=== PATIENT | female | born 1940 | race Caucasian/White ===

== ENCOUNTER → 2016-08-03 | Outpatient (CLI) | payer OTHER ==
[~2016-08-03] MED LIST: ACID16CA PO; BIOT25004 PO; CHOL100018 PO; CRAN500C6 PO; ESTR1TAB15 PO; FLUO20TA25 PO; FURO40TA6 PO; GARL1CAP3 PO; GLUC500T8 PO; HYDR2TAB40 PO; Iron PO; LACT10SO28 PO; LISI2.5T PO; LOPE1TAB4 PO; MORP15TA3 PO; OMEG1CAP6 PO; OMEP-110 PO; OXYC1TAB9 PO; PIOG30TA4 PO; POTA10TA31 PO; ROPI0.5T2 PO; SIMV80TA3 PO; TIZA4TAB9 PO; TRAZ300T2 PO; TRIA0.2517 PO
== END | disposition home or self-care (01) ==
LOC: CFH 05-03 09:47 → EDSTATUS 11:00 → CFH 08-04 14:47
PROVIDERS: ATTEND Internal Medicine Cardiovascular Disease
DX: I08.3 Combined rheumatic disorders of mitral, aortic and tricuspid valves (principal); Z95.2 Presence of prosthetic heart valve
CPT/HCPCS: 93306

== ENCOUNTER 2016-10-20 20:20 | Emergency (ER) | payer OTHER ==
[~2016-10-20] VITALS: Ht 170.2 cm; Wt 75.0 kg
[~2016-10-20 20:20] MED LIST changes: -BIOT25004 PO; +BIOT25005 PO; +CHOL100012 PO; -CHOL100018 PO; +GLUC500T11 PO; -GLUC500T8 PO; -TRIA0.2517 PO; +TRIA0.2576 PO
[2016-10-20 20:30] VITALS: BP 135/67
[2016-10-20] MEDS ORDERED: LIDOCAINE 1%, 20ML INFIL ONE (21:00)
[2016-10-20] MEDS ORDERED: OXYMETAZOLINE NASAL SPRAY 0.05%, 15ML NAS ONE (21:00)
[2016-10-20] MEDS ORDERED: OXYMETAZOLINE NASAL SPRAY 0.05%, 15ML ONE (21:01)
[2016-10-20] MEDS ORDERED: LIDOCAINE 1%, 20ML ONE (21:01)
[2016-10-20] MEDS ORDERED: SILVER NITRATE STICK TP ONE ×3 (21:30→21:40)
== END 2016-10-20 22:05 | disposition home or self-care (01) ==
LOC: ED 21:12
DX: R04.0 Epistaxis (principal)
CPT/HCPCS: 30901

== ENCOUNTER 2017-08-24 15:16 | Inpatient (IN) | payer OTHER ==
[~2017-08-24] VITALS: Ht 177.8 cm; Wt 79.4 kg
[~2017-08-24 15:16] MED LIST changes: +OXYC-432 PO; -OXYC1TAB9 PO
[2017-08-24 15:58] LABS: BASOPHILS # (AUTO) 0.02 x10^3/uL (0-0.1); BASOPHILS % (AUTO) 0 % (0-1); EOSINOPHILS # (AUTO) 0.12 x10^3/uL (0-0.4); EOSINOPHILS % (AUTO) 1 % (1-7); LYMPHOCYTES # (AUTO) 0.69 x10^3/uL (1-3.4); LYMPHOCYTES % (AUTO) 8 % (22-44); MD NO; MEAN CORPUSCULAR HEMOGLOBIN 31.9 pg (27.0-34.8); MEAN CORPUSCULAR HGB CONC 33.6 g/dL (32.4-35.8); MEAN CORPUSCULAR VOLUME 94.9 fL (80-100); MEAN PLATELET VOLUME 7.3 fL (7.4-10.4); MONOCYTES # (AUTO) 0.65 x10^3/uL (0.2-0.8); MONOCYTES % (AUTO) 7 % (2-9); NEUTROPHILS % (AUTO) 83 % (42-75); PLATELET COUNT 237 x10^3/uL (130-400); RED BLOOD COUNT 3.49 x10^6/uL (3.82-5.3); RED CELL DISTRIBUTION WIDTH 14.6 % (9.6-15.2)
[2017-08-24] MEDS ORDERED: MORPHINE SULFATE 4 MG/ML, 1ML IVPush PRN (16:00)
[2017-08-24 16:08] LABS: CHLORIDE 108 mmol/L (98-107)
[2017-08-24 16:17] LABS: ALBUMIN 3.6 g/dL (3.4-5.0); ANION GAP 8 mmol/L (5-15); CALCIUM 9.2 mg/dL (8.5-10.1); CREATININE 1.35 mg/dL (0.55-1.02)
[2017-08-24] MEDS ORDERED: DIPHENHYDRAMINE 50 MG/ML, 1ML IVPush ONE (17:00)
[2017-08-24] MEDS ORDERED: methylPREDNISolone SOD SUCC 125 MG/2 ML IVPush ONE (17:00)
[2017-08-24] MEDS ORDERED: DIPHENHYDRAMINE 50 MG/ML, 1ML ONE (17:49)
[2017-08-24] MEDS ORDERED: methylPREDNISolone SOD SUCC 125 MG/2 ML ONE (17:49)
[2017-08-24] MEDS ORDERED: OMNIPAQUE 350 MG/ML, 100ML BOTTLE ONE (18:42)
[2017-08-24 19:16] LABS: INTERNATIONAL NORMALIZED RATIO 1.01 (0.93-1.1); PROTHROMBIN TIME 10.4 Seconds (9.6-11.5)
[2017-08-24] MEDS ORDERED: PLEASE ENTER WEIGHT MC SCH (19:16)
[2017-08-24] MEDS ORDERED: METOPROLOL TARTRATE 25 MG TABLET PO ONE (19:30)
[2017-08-24] MEDS ORDERED: MORPHINE SULFATE 4 MG/ML, 1ML ONE (19:41)
[2017-08-24] MEDS ORDERED: TRAZODONE 150MG TABLET PO SCH (21:00)
[2017-08-24] MEDS ORDERED: POLYETHYLENE GLYCOL 17 GM PACKET PO PRN (21:00)
[2017-08-24] MEDS ORDERED: ONDANSETRON 2MG/ML, 2ML IVPush PRN (21:00)
[2017-08-24] MEDS ORDERED: ACETAMINOPHEN 325 MG TABLET PO PRN (21:00)
[2017-08-24] MEDS ORDERED: BISACODYL 10 MG SUPP PR PRN (21:00)
[2017-08-24] MEDS ORDERED: ROPINIROLE 0.5MG TABLET PO PRN (21:00)
[2017-08-24] MEDS ORDERED: TEMPLATE NON-FORMULARY MED. (Glucosamine Hcl** 1,000 MG) PO SCH (21:00)
[2017-08-24] MEDS ORDERED: TIZANIDINE 4MG TABLET PO PRN (21:00)
[2017-08-24] MEDS ORDERED: NITROGLYCERIN 0.4 MG BOTTLE (25 TABS) SL PRN (21:00)
[2017-08-24 21:09] VITALS: BP 149/84
[2017-08-24 21:18] LABS: THYROID STIMULATING HORMONE 1.99 mIU/L (0.358-3.740)
[2017-08-24 21:43] LABS: HEMOGLOBIN A1C 5.3 % (4.2-6.3)
[2017-08-24 22:35] LABS: TROPONIN I < 0.015 ng/mL (0.000-0.045)
[2017-08-24] MEDS: OMEGA-3/FISH OIL CAPSULE PO SCH ×2 (22:49→23:10)
[2017-08-24] MEDS: SODIUM CHLORIDE FLUSH 10ML SYR IVF SCH (22:49)
[2017-08-24] MEDS: LISINOPRIL 5 MG TABLET PO SCH (22:50)
[2017-08-24] MEDS: LOPERAMIDE 2 MG CAPSULE PO SCH (22:51)
[2017-08-24] MEDS: SIMVASTATIN 40 MG TABLET PO SCH (22:51)
[2017-08-24] MEDS: TEMAZEPAM 15 MG CAPSULE PO PRN (22:52)
[2017-08-24] MEDS: PIOGLITAZONE 15 MG TABLET PO SCH (22:59)
[2017-08-24] MEDS: ESTRADIOL 1 MG TABLET PO SCH (22:59)
[2017-08-24] MEDS ORDERED: AMIT25TA PO (23:03)
[2017-08-24] MEDS: AMITRIPTYLINE 25 MG TABLET PO SCH (23:15)
[2017-08-24] MEDS: ENOXAPARIN 80 MG/0.8 ML SQ SCH (23:15)
[2017-08-25 02:00] VITALS: BP 128/80
[2017-08-25 05:07] LABS: ALBUMIN 3.5 g/dL (3.4-5.0); ANION GAP 9 mmol/L (5-15); CALCIUM 9.2 mg/dL (8.5-10.1); CHLORIDE 105 mmol/L (98-107)
[2017-08-25 05:09] LABS: MEAN CORPUSCULAR HEMOGLOBIN 31.9 pg (27.0-34.8); MEAN CORPUSCULAR HGB CONC 33.7 g/dL (32.4-35.8); MEAN CORPUSCULAR VOLUME 94.7 fL (80-100); MEAN PLATELET VOLUME 7.4 fL (7.4-10.4); PLATELET COUNT 256 x10^3/uL (130-400); RED BLOOD COUNT 3.67 x10^6/uL (3.82-5.3); RED CELL DISTRIBUTION WIDTH 14.7 % (9.6-15.2)
[2017-08-25 05:12] LABS: ALANINE AMINOTRANSFERASE 35 U/L (12-78); ALKALINE PHOSPHATASE 144 U/L (45-117); BILIRUBIN,TOTAL 0.5 mg/dL (0.2-1.0); CREATININE 1.45 mg/dL (0.55-1.02); TOTAL PROTEIN 7.9 g/dL (6.4-8.2); TROPONIN I < 0.015 ng/mL (0.000-0.045)
[2017-08-25] MEDS: METOPROLOL TARTRATE 50 MG TABLET PO SCH ×2 (05:48→16:43)
[2017-08-25 05:51] LABS: BASOPHILS % (AUTO) 0 % (0-1); EOSINOPHILS % (AUTO) 0 % (1-7); LYMPHOCYTES # (AUTO) 0.43 x10^3/uL (1-3.4); LYMPHOCYTES % (AUTO) 5 % (22-44); MD SCAN; MONOCYTES # (AUTO) 0.07 x10^3/uL (0.2-0.8); MONOCYTES % (AUTO) 1 % (2-9); NEUTROPHILS # (AUTO) 8.81 x10^3/uL (1.8-6.8); NEUTROPHILS % (AUTO) 95 % (42-75)
[2017-08-25] MEDS: LOPERAMIDE 2 MG CAPSULE PO SCH ×2 (08:04→21:21)
[2017-08-25] MEDS: CHOLECALCIFEROL 1,000 UNIT TABLET PO SCH (08:04)
[2017-08-25] MEDS: OMEGA-3/FISH OIL CAPSULE PO SCH ×2 (08:04→21:00)
[2017-08-25] MEDS: FLUOXETINE HCL 20 MG CAPSULE PO SCH (08:05)
[2017-08-25] MEDS: AMITRIPTYLINE 25 MG TABLET PO SCH ×3 (08:05→21:20)
[2017-08-25] MEDS: IRON PO SCH (08:06)
[2017-08-25] MEDS: SENNA/DOCUSATE TABLET PO SCH (08:06)
[2017-08-25] MEDS: SODIUM CHLORIDE FLUSH 10ML SYR IVF SCH ×2 (08:06→21:19)
[2017-08-25] MEDS: LACTOBACILLUS CHEW TABLET PO SCH (08:06)
[2017-08-25] MEDS: PIOGLITAZONE 15 MG TABLET PO SCH ×2 (08:06→21:19)
[2017-08-25 08:55] VITALS: BP 120/76
[2017-08-25] MEDS ORDERED: GARLIC PO SCH (09:00)
[2017-08-25] MEDS ORDERED: TEMPLATE NON-FORMULARY MED. (Biotin** 5,000 MG) PO SCH (09:00)
[2017-08-25] MEDS: ENOXAPARIN 80 MG/0.8 ML SQ SCH ×2 (09:43→21:22)
[2017-08-25 13:37] LABS: INTERNATIONAL NORMALIZED RATIO 1.09 (0.93-1.1); PROTHROMBIN TIME 11.2 Seconds (9.6-11.5)
[2017-08-25 14:34] VITALS: BP 105/69
[2017-08-25] MEDS ORDERED: WARFARIN 5 MG TABLET PO-COUM ONE (18:00)
[2017-08-25 19:02] VITALS: BP 101/66
[2017-08-25 21:17] VITALS: BP 106/69
[2017-08-25] MEDS: ESTRADIOL 1 MG TABLET PO SCH (21:20)
[2017-08-25] MEDS: LISINOPRIL 5 MG TABLET PO SCH (21:21)
[2017-08-25] MEDS: SIMVASTATIN 40 MG TABLET PO SCH (21:22)
[2017-08-25] MEDS: TEMAZEPAM 15 MG CAPSULE PO PRN (21:32)
[2017-08-26 02:25] VITALS: BP 110/70
[2017-08-26 05:10] VITALS: BP 97/60
[2017-08-26] MEDS: METOPROLOL TARTRATE 50 MG TABLET PO SCH ×2 (05:12→16:06)
[2017-08-26 05:19] LABS: INTERNATIONAL NORMALIZED RATIO 1.02 (0.93-1.1); PROTHROMBIN TIME 10.5 Seconds (9.6-11.5)
[2017-08-26 05:22] LABS: BASOPHILS # (AUTO) 0.04 x10^3/uL (0-0.1); BASOPHILS % (AUTO) 0 % (0-1); EOSINOPHILS # (AUTO) 0.05 x10^3/uL (0-0.4); EOSINOPHILS % (AUTO) 0 % (1-7); LYMPHOCYTES # (AUTO) 1.35 x10^3/uL (1-3.4); LYMPHOCYTES % (AUTO) 10 % (22-44); MD NO; MEAN CORPUSCULAR HEMOGLOBIN 32.2 pg (27.0-34.8); MEAN CORPUSCULAR HGB CONC 33.6 g/dL (32.4-35.8); MEAN CORPUSCULAR VOLUME 95.6 fL (80-100); MEAN PLATELET VOLUME 7.8 fL (7.4-10.4); MONOCYTES # (AUTO) 0.84 x10^3/uL (0.2-0.8); MONOCYTES % (AUTO) 6 % (2-9); NEUTROPHILS # (AUTO) 11.88 x10^3/uL (1.8-6.8); NEUTROPHILS % (AUTO) 84 % (42-75); PLATELET COUNT 249 x10^3/uL (130-400); RED BLOOD COUNT 3.38 x10^6/uL (3.82-5.3); RED CELL DISTRIBUTION WIDTH 14.5 % (9.6-15.2)
[2017-08-26 05:39] LABS: ANION GAP 7 mmol/L (5-15); CALCIUM 9.2 mg/dL (8.5-10.1); CHLORIDE 103 mmol/L (98-107); CREATININE 1.62 mg/dL (0.55-1.02)
[2017-08-26] MEDS ORDERED: SODIUM CHLORIDE 0.9%, 500ML IVBOLUS ONE (07:00)
[2017-08-26] MEDS: IRON PO SCH (07:12)
[2017-08-26] MEDS: SENNA/DOCUSATE TABLET PO SCH (07:12)
[2017-08-26] MEDS: OMEGA-3/FISH OIL CAPSULE PO SCH ×3 (07:12→20:14)
[2017-08-26 07:20] VITALS: BP 108/71
[2017-08-26] MEDS: LACTOBACILLUS CHEW TABLET PO SCH (07:25)
[2017-08-26] MEDS: CHOLECALCIFEROL 1,000 UNIT TABLET PO SCH (07:25)
[2017-08-26] MEDS: FLUOXETINE HCL 20 MG CAPSULE PO SCH (07:25)
[2017-08-26] MEDS: PIOGLITAZONE 15 MG TABLET PO SCH ×2 (07:25→20:05)
[2017-08-26] MEDS: LOPERAMIDE 2 MG CAPSULE PO SCH ×2 (07:25→20:06)
[2017-08-26] MEDS: AMITRIPTYLINE 25 MG TABLET PO SCH ×3 (07:25→20:06)
[2017-08-26] MEDS: SODIUM CHLORIDE FLUSH 10ML SYR IVF SCH ×2 (07:26→20:07)
[2017-08-26] MEDS: ENOXAPARIN 80 MG/0.8 ML SQ SCH ×2 (09:52→20:05)
[2017-08-26 14:30] VITALS: BP 107/61
[2017-08-26 14:41] LABS: ANION GAP 8 mmol/L (5-15); CHLORIDE 104 mmol/L (98-107); CREATININE 1.63 mg/dL (0.55-1.02)
[2017-08-26] MEDS: SODIUM CHLORIDE 0.9% 1,000 ML IV SCH (16:06)
[2017-08-26 17:27] LABS: MICROSCOPIC AUTO
[2017-08-26 17:31] LABS: CULTURE INDICATED? YES
[2017-08-26] MEDS ORDERED: WARFARIN 5 MG TABLET PO-COUM SCH (18:00)
[2017-08-26 19:02] VITALS: BP 92/60
[2017-08-26] MEDS: ESTRADIOL 1 MG TABLET PO SCH (20:06)
[2017-08-26] MEDS: LISINOPRIL 5 MG TABLET PO SCH (20:08)
[2017-08-26] MEDS: SIMVASTATIN 40 MG TABLET PO SCH (20:08)
[2017-08-26] MEDS: TEMAZEPAM 15 MG CAPSULE PO PRN (22:28)
[2017-08-27 01:03] VITALS: BP 103/69
[2017-08-27] MEDS: SODIUM CHLORIDE 0.9% 1,000 ML IV SCH (02:02)
[2017-08-27 05:27] VITALS: BP_SYST 94; BP_SYST 95; BP_DIAS 59; BP_DIAS 64
[2017-08-27 05:34] LABS: INTERNATIONAL NORMALIZED RATIO 1.04 (0.93-1.1); PROTHROMBIN TIME 10.7 Seconds (9.6-11.5)
[2017-08-27] MEDS: METOPROLOL TARTRATE 50 MG TABLET PO SCH (05:34)
[2017-08-27 05:40] LABS: ANION GAP 8 mmol/L (5-15); CALCIUM 8.4 mg/dL (8.5-10.1); CHLORIDE 108 mmol/L (98-107); CREATININE 1.55 mg/dL (0.55-1.02)
[2017-08-27 06:34] VITALS: BP 98/52
[2017-08-27] MEDS: IRON PO SCH (07:19)
[2017-08-27] MEDS: SENNA/DOCUSATE TABLET PO SCH (07:19)
[2017-08-27] MEDS: OMEGA-3/FISH OIL CAPSULE PO SCH (07:19)
[2017-08-27] MEDS: FLUOXETINE HCL 20 MG CAPSULE PO SCH (07:27)
[2017-08-27] MEDS: LOPERAMIDE 2 MG CAPSULE PO SCH (07:27)
[2017-08-27] MEDS: AMITRIPTYLINE 25 MG TABLET PO SCH (07:27)
[2017-08-27] MEDS: PIOGLITAZONE 15 MG TABLET PO SCH (07:27)
[2017-08-27] MEDS: LACTOBACILLUS CHEW TABLET PO SCH (07:27)
[2017-08-27] MEDS: CHOLECALCIFEROL 1,000 UNIT TABLET PO SCH (07:27)
[2017-08-27] MEDS: SODIUM CHLORIDE FLUSH 10ML SYR IVF SCH (07:28)
[2017-08-27 07:43] LABS: BASOPHILS # (AUTO) 0.04 x10^3/uL (0-0.1); BASOPHILS % (AUTO) 0 % (0-1); EOSINOPHILS # (AUTO) 0.11 x10^3/uL (0-0.4); EOSINOPHILS % (AUTO) 1 % (1-7); LYMPHOCYTES # (AUTO) 0.81 x10^3/uL (1-3.4); LYMPHOCYTES % (AUTO) 9 % (22-44); MD NO; MEAN CORPUSCULAR HEMOGLOBIN 31.3 pg (27.0-34.8); MEAN CORPUSCULAR HGB CONC 33.1 g/dL (32.4-35.8); MEAN CORPUSCULAR VOLUME 94.5 fL (80-100); MEAN PLATELET VOLUME 8.1 fL (7.4-10.4); MONOCYTES # (AUTO) 0.56 x10^3/uL (0.2-0.8); MONOCYTES % (AUTO) 6 % (2-9); NEUTROPHILS # (AUTO) 7.78 x10^3/uL (1.8-6.8); NEUTROPHILS % (AUTO) 84 % (42-75); PLATELET COUNT 239 x10^3/uL (130-400); RED BLOOD COUNT 3.38 x10^6/uL (3.82-5.3); RED CELL DISTRIBUTION WIDTH 14.5 % (9.6-15.2)
[2017-08-27 07:53] LABS: HEMOGRAM NOTE RECHECKED
[2017-08-27] MEDS ORDERED: METO50TA82 PO (08:49)
[2017-08-27] MEDS ORDERED: WARF7.5T PO-COUM (08:49)
[2017-08-27] MEDS: ENOXAPARIN 80 MG/0.8 ML SQ SCH (10:00)
[2017-08-27] MEDS ORDERED: WARFARIN 7.5 MG TABLET PO-COUM SCH (18:00)
== END 2017-08-27 12:00 | disposition home or self-care (01) | DRG 308 ==
LOC: ED 17:10 → EDIP 19:15 → 5SO 21:03
PROVIDERS: ADMIT Internal Medicine; ATTEND Internal Medicine
DX: I48.0 Paroxysmal atrial fibrillation (principal); N17.0 Acute kidney failure with tubular necrosis; D68.69 Other thrombophilia; I48.92 Unspecified atrial flutter; D64.9 Anemia, unspecified; I08.1 Rheumatic disorders of both mitral and tricuspid valves; E11.22 Type 2 diabetes mellitus with diabetic chronic kidney disease; E78.5 Hyperlipidemia, unspecified; N18.9 Chronic kidney disease, unspecified; I13.10 Hypertensive heart and chronic kidney disease without heart failure, with stage 1 through stage 4 chronic kidney disease, or unspecified chronic kidney disease; I25.10 Atherosclerotic heart disease of native coronary artery without angina pectoris; I25.2 Old myocardial infarction; Z79.01 Long term (current) use of anticoagulants; Z81.8 Family history of other mental and behavioral disorders; Z90.710 Acquired absence of both cervix and uterus; Z95.3 Presence of xenogenic heart valve; Z79.899 Other long term (current) drug therapy; Z88.1 Allergy status to other antibiotic agents; Z88.8 Allergy status to other drugs, medicaments and biological substances
CPT/HCPCS: 36415; 71045; 71275; 80048; 80053; 81001; 82040; 82962; 83036; 83735; 84443; 84484; 85025; 85379; 85610; 87077; 87086; 87186; 93005; 93306; 96374; 96375; J1650; Q9967; J1200; J2930; J7030; J7040

== ENCOUNTER 2017-09-05 11:24 | Inpatient (IN) | payer OTHER ==
[~2017-09-05] VITALS: Ht 170.2 cm; Wt 82.2 kg
[~2017-09-05 11:24] MED LIST changes: +AMIT25TA PO; +METO50TA82 PO; +WARF7.5T PO-COUM
[2017-09-05] MEDS ORDERED: SODIUM CHLORIDE 0.9% 1,000ML IVBOLUS ONE (12:00)
[2017-09-05] MEDS ORDERED: SODIUM CHLORIDE FLUSH 10ML SYR IVF ONE (12:00)
[2017-09-05 12:31] LABS: BASOPHILS # (AUTO) 0.02 x10^3/uL (0-0.1); BASOPHILS % (AUTO) 0 % (0-1); EOSINOPHILS # (AUTO) 0.06 x10^3/uL (0-0.4); EOSINOPHILS % (AUTO) 1 % (1-7); LYMPHOCYTES % (AUTO) 6 % (22-44); MD NO; MEAN CORPUSCULAR HEMOGLOBIN 30.8 pg (27.0-34.8); MEAN CORPUSCULAR HGB CONC 32.8 g/dL (32.4-35.8); MEAN CORPUSCULAR VOLUME 93.7 fL (80-100); MEAN PLATELET VOLUME 8.2 fL (7.4-10.4); MONOCYTES # (AUTO) 0.63 x10^3/uL (0.2-0.8); MONOCYTES % (AUTO) 7 % (2-9); NEUTROPHILS # (AUTO) 8.41 x10^3/uL (1.8-6.8); NEUTROPHILS % (AUTO) 87 % (42-75); PLATELET COUNT 229 x10^3/uL (130-400); RED BLOOD COUNT 3.24 x10^6/uL (3.82-5.3); RED CELL DISTRIBUTION WIDTH 15.3 % (9.6-15.2)
[2017-09-05 12:41] LABS: ALANINE AMINOTRANSFERASE 50 U/L (12-78); ALBUMIN 3.4 g/dL (3.4-5.0); ANION GAP 8 mmol/L (5-15); CALCIUM 8.4 mg/dL (8.5-10.1); CHLORIDE 109 mmol/L (98-107); CREATININE 1.72 mg/dL (0.55-1.02)
[2017-09-05 12:45] LABS: ALKALINE PHOSPHATASE 174 U/L (45-117); BILIRUBIN,TOTAL 0.4 mg/dL (0.2-1.0); TOTAL PROTEIN 7.1 g/dL (6.4-8.2); TROPONIN I < 0.015 ng/mL (0.000-0.045)
[2017-09-05 13:06] LABS: INTERNATIONAL NORMALIZED RATIO 13.26 (0.93-1.1); PROTHROMBIN TIME 131.1 Seconds (9.6-11.5)
[2017-09-05] MEDS ORDERED: PHYTONADIONE 5 MG TABLET PO ONE (13:30)
[2017-09-05 13:55] VITALS: BP 113/75
[2017-09-05] MEDS ORDERED: ATOR-2 PO (14:11)
[2017-09-05] MEDS ORDERED: POLYETHYLENE GLYCOL 17 GM PACKET PO PRN (16:00)
[2017-09-05] MEDS ORDERED: NITROGLYCERIN 0.4 MG BOTTLE (25 TABS) SL PRN (16:00)
[2017-09-05] MEDS: AMITRIPTYLINE 25 MG TABLET PO SCH ×2 (16:05→20:03)
[2017-09-05] MEDS: FERROUS SULFATE 325 MG TABLET PO SCH (16:05)
[2017-09-05 17:47] VITALS: BP 128/80
[2017-09-05] MEDS: ACETAMINOPHEN 325 MG TABLET PO PRN (18:32)
[2017-09-05] MEDS ORDERED: PHYTONADIONE 5 MG in SODIUM CHLORIDE 0.9% 50 ML IV ONE (18:46)
[2017-09-05] MEDS: ATORVASTATIN 80 MG TABLET PO SCH (20:03)
[2017-09-05] MEDS: ESTRADIOL 1 MG TABLET PO SCH (20:03)
[2017-09-05 20:24] VITALS: BP 108/67
[2017-09-05] MEDS: ZOLPIDEM 5MG TABLET PO SCH (21:28)
[2017-09-05 21:37] VITALS: BP 102/58
[2017-09-05 21:44] VITALS: BP 102/63
[2017-09-05 22:20] LABS: CULTURE INDICATED? YES; MICROSCOPIC INDICATED
[2017-09-06] VITALS (8 sets, daily range): BP systolic 107–134; BP diastolic 66–89
[2017-09-06 05:44] LABS: BASOPHILS # (AUTO) 0.02 x10^3/uL (0-0.1); BASOPHILS % (AUTO) 0 % (0-1); EOSINOPHILS # (AUTO) 0.06 x10^3/uL (0-0.4); EOSINOPHILS % (AUTO) 1 % (1-7); LYMPHOCYTES # (AUTO) 0.59 x10^3/uL (1-3.4); LYMPHOCYTES % (AUTO) 7 % (22-44); MD NO; MEAN CORPUSCULAR HEMOGLOBIN 31.2 pg (27.0-34.8); MEAN CORPUSCULAR HGB CONC 33.2 g/dL (32.4-35.8); MEAN CORPUSCULAR VOLUME 94.1 fL (80-100); MEAN PLATELET VOLUME 7.9 fL (7.4-10.4); MONOCYTES # (AUTO) 0.69 x10^3/uL (0.2-0.8); MONOCYTES % (AUTO) 8 % (2-9); NEUTROPHILS # (AUTO) 7.52 x10^3/uL (1.8-6.8); NEUTROPHILS % (AUTO) 85 % (42-75); PLATELET COUNT 182 x10^3/uL (130-400); RED BLOOD COUNT 2.95 x10^6/uL (3.82-5.3); RED CELL DISTRIBUTION WIDTH 14.8 % (9.6-15.2)
[2017-09-06 05:46] LABS: INTERNATIONAL NORMALIZED RATIO 2.31 (0.93-1.1); PROTHROMBIN TIME 23.6 Seconds (9.6-11.5)
[2017-09-06 05:54] LABS: CHLORIDE 109 mmol/L (98-107)
[2017-09-06 06:08] LABS: ALANINE AMINOTRANSFERASE 44 U/L (12-78); ALKALINE PHOSPHATASE 154 U/L (45-117); ANION GAP 10 mmol/L (5-15); BILIRUBIN,TOTAL 0.7 mg/dL (0.2-1.0); CALCIUM 7.9 mg/dL (8.5-10.1); CREATININE 1.51 mg/dL (0.55-1.02); TOTAL PROTEIN 6.3 g/dL (6.4-8.2)
[2017-09-06] MEDS: SENNA/DOCUSATE TABLET PO SCH (08:53)
[2017-09-06] MEDS: CHOLECALCIFEROL 1,000 UNIT TABLET PO SCH (08:53)
[2017-09-06] MEDS: FERROUS SULFATE 325 MG TABLET PO SCH (08:54)
[2017-09-06] MEDS: FLUOXETINE HCL 20 MG CAPSULE PO SCH (08:54)
[2017-09-06] MEDS: OMEPRAZOLE 20 MG CAPSULE.DR PO SCH (08:54)
[2017-09-06] MEDS: AMITRIPTYLINE 25 MG TABLET PO SCH ×3 (08:55→20:48)
[2017-09-06] MEDS: ACETAMINOPHEN 325 MG TABLET PO PRN (11:24)
[2017-09-06] MEDS ORDERED: SODIUM CHLORIDE 0.9% 1,000 ML IV ONE (16:12)
[2017-09-06] MEDS ORDERED: DIPHENHYDRAMINE 50 MG/ML, 1ML IVPush ONE (16:30)
[2017-09-06] MEDS ORDERED: methylPREDNISolone SOD SUCC 125 MG/2 ML IVPush ONE (16:30)
[2017-09-06] MEDS: ESTRADIOL 1 MG TABLET PO SCH (20:48)
[2017-09-06] MEDS: ATORVASTATIN 80 MG TABLET PO SCH (20:48)
[2017-09-06] MEDS: ZOLPIDEM 5MG TABLET PO SCH (20:48)
[2017-09-07 02:30] VITALS: BP 96/61
[2017-09-07 02:35] VITALS: BP 119/71
[2017-09-07 02:40] VITALS: BP 107/54
[2017-09-07 05:46] LABS: BASOPHILS # (AUTO) 0.03 x10^3/uL (0-0.1); BASOPHILS % (AUTO) 0 % (0-1); EOSINOPHILS % (AUTO) 1 % (1-7); LYMPHOCYTES # (AUTO) 0.84 x10^3/uL (1-3.4); LYMPHOCYTES % (AUTO) 10 % (22-44); MD NO; MEAN CORPUSCULAR HEMOGLOBIN 31.6 pg (27.0-34.8); MEAN CORPUSCULAR HGB CONC 33.7 g/dL (32.4-35.8); MEAN CORPUSCULAR VOLUME 93.8 fL (80-100); MEAN PLATELET VOLUME 7.8 fL (7.4-10.4); MONOCYTES # (AUTO) 0.77 x10^3/uL (0.2-0.8); MONOCYTES % (AUTO) 9 % (2-9); NEUTROPHILS # (AUTO) 6.52 x10^3/uL (1.8-6.8); NEUTROPHILS % (AUTO) 79 % (42-75); PLATELET COUNT 169 x10^3/uL (130-400); RED BLOOD COUNT 2.75 x10^6/uL (3.82-5.3); RED CELL DISTRIBUTION WIDTH 15.4 % (9.6-15.2)
[2017-09-07 05:51] LABS: INTERNATIONAL NORMALIZED RATIO 1.56 (0.93-1.1); PROTHROMBIN TIME 16.1 Seconds (9.6-11.5)
[2017-09-07 05:55] LABS: ALBUMIN 2.8 g/dL (3.4-5.0); ANION GAP 7 mmol/L (5-15); CALCIUM 8.4 mg/dL (8.5-10.1); CHLORIDE 111 mmol/L (98-107); CREATININE 1.42 mg/dL (0.55-1.02)
[2017-09-07 06:54] VITALS: BP 102/64
[2017-09-07] MEDS: FLUOXETINE HCL 20 MG CAPSULE PO SCH (08:06)
[2017-09-07] MEDS: OMEPRAZOLE 20 MG CAPSULE.DR PO SCH (08:06)
[2017-09-07] MEDS: AMITRIPTYLINE 25 MG TABLET PO SCH ×3 (08:06→21:50)
[2017-09-07] MEDS: FERROUS SULFATE 325 MG TABLET PO SCH (08:06)
[2017-09-07] MEDS: CHOLECALCIFEROL 1,000 UNIT TABLET PO SCH (08:06)
[2017-09-07] MEDS: SENNA/DOCUSATE TABLET PO SCH (08:08)
[2017-09-07] MEDS ORDERED: methylPREDNISolone SOD SUCC 125 MG/2 ML ONE (10:58)
[2017-09-07] MEDS ORDERED: DIPHENHYDRAMINE 50 MG/ML, 1ML ONE (10:58)
[2017-09-07] MEDS ORDERED: BIVALIRUDIN 250 MG ONE ×2 (11:20→12:43)
[2017-09-07] MEDS ORDERED: MIDAZOLAM 1 MG/ML, 5ML ONE (11:20)
[2017-09-07] MEDS ORDERED: NITROGLYCERIN 5 MG/ML, 10ML ONE (11:20)
[2017-09-07] MEDS ORDERED: FENTANYL PF 100 MCG/2ML ONE (11:20)
[2017-09-07] MEDS ORDERED: TICAGRELOR 90 MG TABLET ONE (11:20)
[2017-09-07] MEDS ORDERED: VERAPAMIL 2.5 MG/ML, 2ML ONE (11:20)
[2017-09-07] MEDS ORDERED: LIDOCAINE-MPF 2% ,5ML ONE (11:21)
[2017-09-07] MEDS ORDERED: HEPARIN 1,000 UNITS/ML, 10ML ONE (11:21)
[2017-09-07] MEDS ORDERED: LIDOCAINE/PF 1%, 30ML ONE (12:27)
[2017-09-07] MEDS ORDERED: EPINEPHRINE SYRINGE 0.1 MG/ML, 10ML ONE ×2 (12:28→13:30)
[2017-09-07] MEDS ORDERED: PROPOFOL 10 MG/ML, 20ML ONE (12:45)
[2017-09-07] MEDS ORDERED: DOPAMINE/D5W PMX 250 ML ONE (12:58)
[2017-09-07] MEDS ORDERED: ATROPINE SYRINGE 0.1 MG/ML, 10ML ONE ×2 (13:30→13:44)
[2017-09-07] MEDS ORDERED: BIVALIRUDIN 250 MG in DEXTROSE 5% 50 ML IV SCH (13:43)
[2017-09-07] MEDS ORDERED: PHENYLEPHRINE 20 MG in SODIUM CHLORIDE 0.9% 248 ML IV PRN (14:30)
[2017-09-07] MEDS ORDERED: TICAGRELOR 90 MG TABLET PO ONE (15:00)
[2017-09-07] MEDS: TICAGRELOR 90 MG TABLET PO SCH (21:50)
[2017-09-07] MEDS: ESTRADIOL 1 MG TABLET PO SCH (21:50)
[2017-09-07] MEDS: ATORVASTATIN 80 MG TABLET PO SCH (21:51)
[2017-09-07] MEDS: ZOLPIDEM 5MG TABLET PO SCH (21:51)
[2017-09-07 23:13] LABS: CULTURE INDICATED? YES; MICROSCOPIC INDICATED
[2017-09-08] MEDS ORDERED: DOPAMINE/D5W PMX 250 ML IV PRN (00:30)
[2017-09-08 04:00] VITALS: BP 155/82
[2017-09-08 05:40] LABS: ALBUMIN 2.8 g/dL (3.4-5.0); ANION GAP 11 mmol/L (5-15); CALCIUM 8.2 mg/dL (8.5-10.1); CHLORIDE 114 mmol/L (98-107); CREATININE 1.18 mg/dL (0.55-1.02)
[2017-09-08] MEDS: SENNA/DOCUSATE TABLET PO SCH (07:55)
[2017-09-08] MEDS: CEFTRIAXONE PMX 2GM/50ML 50 ML IV SCH (08:06)
[2017-09-08] MEDS: ASPIRIN 81 MG TABLET EC PO SCH (08:40)
[2017-09-08] MEDS: CHOLECALCIFEROL 1,000 UNIT TABLET PO SCH (08:40)
[2017-09-08] MEDS: OMEPRAZOLE 20 MG CAPSULE.DR PO SCH (08:40)
[2017-09-08] MEDS: FERROUS SULFATE 325 MG TABLET PO SCH (08:40)
[2017-09-08] MEDS: TICAGRELOR 90 MG TABLET PO SCH ×2 (08:40→21:00)
[2017-09-08] MEDS: FLUOXETINE HCL 20 MG CAPSULE PO SCH (08:41)
[2017-09-08] MEDS: AMITRIPTYLINE 25 MG TABLET PO SCH ×3 (08:41→21:00)
[2017-09-08] MEDS ORDERED: MORPHINE SULFATE 4 MG/ML, 1ML ONE (11:12)
[2017-09-08] MEDS ORDERED: morphine SULFATE 10 MG/ML, 1ML IVPush ONE (11:30)
[2017-09-08] MEDS ORDERED: MORPHINE SULFATE 4 MG/ML, 1ML IVPush ONE (12:30)
[2017-09-08] MEDS: ATORVASTATIN 80 MG TABLET PO SCH (21:00)
[2017-09-08] MEDS: ZOLPIDEM 5MG TABLET PO SCH (21:01)
[2017-09-09 04:00] VITALS: BP 141/80
[2017-09-09 05:01] LABS: MEAN CORPUSCULAR HEMOGLOBIN 31.9 pg (27.0-34.8); MEAN CORPUSCULAR HGB CONC 33.4 g/dL (32.4-35.8); MEAN CORPUSCULAR VOLUME 95.4 fL (80-100); MEAN PLATELET VOLUME 7.5 fL (7.4-10.4); PLATELET COUNT 206 x10^3/uL (130-400); RED BLOOD COUNT 2.72 x10^6/uL (3.82-5.3); RED CELL DISTRIBUTION WIDTH 15.1 % (9.6-15.2)
[2017-09-09 05:12] LABS: ALBUMIN 2.9 g/dL (3.4-5.0); ANION GAP 7 mmol/L (5-15); CALCIUM 8.6 mg/dL (8.5-10.1); CHLORIDE 112 mmol/L (98-107)
[2017-09-09 05:16] LABS: ALANINE AMINOTRANSFERASE 36 U/L (12-78); ALKALINE PHOSPHATASE 141 U/L (45-117); BILIRUBIN,TOTAL 0.5 mg/dL (0.2-1.0); CREATININE 1.32 mg/dL (0.55-1.02); TOTAL PROTEIN 6.6 g/dL (6.4-8.2)
[2017-09-09 05:35] LABS: BASOPHILS # (AUTO) 0.13 x10^3/uL (0-0.1); BASOPHILS % (AUTO) 1 % (0-1); EOSINOPHILS # (AUTO) 0.02 x10^3/uL (0-0.4); EOSINOPHILS % (AUTO) 0 % (1-7); LYMPHOCYTES # (AUTO) 0.81 x10^3/uL (1-3.4); LYMPHOCYTES % (AUTO) 6 % (22-44); MD SCAN; MONOCYTES # (AUTO) 0.88 x10^3/uL (0.2-0.8); MONOCYTES % (AUTO) 7 % (2-9); NEUTROPHILS # (AUTO) 11.18 x10^3/uL (1.8-6.8); NEUTROPHILS % (AUTO) 86 % (42-75)
[2017-09-09] MEDS: CEFTRIAXONE PMX 2GM/50ML 50 ML IV SCH (06:14)
[2017-09-09] MEDS: SENNA/DOCUSATE TABLET PO SCH (08:21)
[2017-09-09] MEDS: AMITRIPTYLINE 25 MG TABLET PO SCH ×3 (08:28→21:07)
[2017-09-09] MEDS: CHOLECALCIFEROL 1,000 UNIT TABLET PO SCH (08:28)
[2017-09-09] MEDS: FLUOXETINE HCL 20 MG CAPSULE PO SCH (08:29)
[2017-09-09] MEDS: OMEPRAZOLE 20 MG CAPSULE.DR PO SCH (08:29)
[2017-09-09] MEDS: FERROUS SULFATE 325 MG TABLET PO SCH (08:29)
[2017-09-09] MEDS: ASPIRIN 81 MG TABLET EC PO SCH (08:39)
[2017-09-09] MEDS: TICAGRELOR 90 MG TABLET PO SCH ×2 (08:39→21:08)
[2017-09-09] MEDS ORDERED: MAGNESIUM SULFATE PMX 2GM/50ML 50 ML IV ONE (09:00)
[2017-09-09 10:52] VITALS: BP 146/69
[2017-09-09] MEDS ORDERED: METOPROLOL TARTRATE 25 MG TABLET PO SCH (12:00)
[2017-09-09] MEDS: MUPIROCIN OINT 2%, 22GM TP SCH (12:27)
[2017-09-09 15:06] VITALS: BP 132/70
[2017-09-09] MEDS ORDERED: RIVAROXABAN 15 MG TABLET PO SCH (17:00)
[2017-09-09 19:07] VITALS: BP 135/74
[2017-09-09] MEDS ORDERED: NEOSPORIN OINT, 15GM TP SCH (21:00)
[2017-09-09] MEDS: ZOLPIDEM 5MG TABLET PO SCH (21:07)
[2017-09-09] MEDS: ATORVASTATIN 80 MG TABLET PO SCH (21:07)
[2017-09-09] MEDS: METOPROLOL TARTRATE 25 MG TABLET PO SCH (21:08)
[2017-09-09] MEDS: ACETAMINOPHEN 325 MG TABLET PO PRN (21:12)
[2017-09-10 00:33] VITALS: BP 130/76
[2017-09-10] MEDS: MUPIROCIN OINT 2%, 22GM TP SCH ×2 (02:57→17:05)
[2017-09-10 03:04] LABS: BASOPHILS # (AUTO) 0.01 x10^3/uL (0-0.1); BASOPHILS % (AUTO) 0 % (0-1); EOSINOPHILS # (AUTO) 0.09 x10^3/uL (0-0.4); EOSINOPHILS % (AUTO) 1 % (1-7); LYMPHOCYTES % (AUTO) 7 % (22-44); MD NO; MEAN CORPUSCULAR HEMOGLOBIN 32.2 pg (27.0-34.8); MEAN CORPUSCULAR HGB CONC 33.8 g/dL (32.4-35.8); MEAN CORPUSCULAR VOLUME 95.2 fL (80-100); MEAN PLATELET VOLUME 7.3 fL (7.4-10.4); MONOCYTES # (AUTO) 0.24 x10^3/uL (0.2-0.8); MONOCYTES % (AUTO) 2 % (2-9); NEUTROPHILS # (AUTO) 9.23 x10^3/uL (1.8-6.8); NEUTROPHILS % (AUTO) 90 % (42-75); PLATELET COUNT 217 x10^3/uL (130-400); RED BLOOD COUNT 2.72 x10^6/uL (3.82-5.3); RED CELL DISTRIBUTION WIDTH 15.2 % (9.6-15.2)
[2017-09-10 03:10] LABS: ANION GAP 8 mmol/L (5-15); CALCIUM 8.6 mg/dL (8.5-10.1); CHLORIDE 112 mmol/L (98-107)
[2017-09-10] MEDS ORDERED: OXYMETAZOLINE NASAL SPRAY 0.05%, 15ML NAS PRN (04:30)
[2017-09-10 06:35] VITALS: BP 144/79
[2017-09-10] MEDS: SENNA/DOCUSATE TABLET PO SCH (09:00)
[2017-09-10] MEDS: FERROUS SULFATE 325 MG TABLET PO SCH (09:38)
[2017-09-10] MEDS: TICAGRELOR 90 MG TABLET PO SCH ×2 (09:38→21:24)
[2017-09-10] MEDS: ASPIRIN 81 MG TABLET EC PO SCH (09:38)
[2017-09-10] MEDS: AMITRIPTYLINE 25 MG TABLET PO SCH ×3 (09:38→21:23)
[2017-09-10] MEDS: OMEPRAZOLE 20 MG CAPSULE.DR PO SCH (09:38)
[2017-09-10] MEDS: FLUOXETINE HCL 20 MG CAPSULE PO SCH (09:39)
[2017-09-10] MEDS: CHOLECALCIFEROL 1,000 UNIT TABLET PO SCH (09:39)
[2017-09-10] MEDS: METOPROLOL TARTRATE 25 MG TABLET PO SCH ×2 (09:39→21:24)
[2017-09-10] MEDS: CEFTRIAXONE PMX 2GM/50ML 50 ML IV SCH (09:43)
[2017-09-10 14:25] VITALS: BP 132/81
[2017-09-10 18:58] VITALS: BP 132/73
[2017-09-10] MEDS: ATORVASTATIN 80 MG TABLET PO SCH (21:23)
[2017-09-10] MEDS: ZOLPIDEM 5MG TABLET PO SCH (21:24)
[2017-09-11 01:38] VITALS: BP 135/79
[2017-09-11 05:02] LABS: ANION GAP 6 mmol/L (5-15); CALCIUM 8.5 mg/dL (8.5-10.1); CHLORIDE 112 mmol/L (98-107); CREATININE 1.05 mg/dL (0.55-1.02)
[2017-09-11 05:08] LABS: MEAN CORPUSCULAR HEMOGLOBIN 31.7 pg (27.0-34.8); MEAN CORPUSCULAR HGB CONC 33.3 g/dL (32.4-35.8); MEAN CORPUSCULAR VOLUME 95.2 fL (80-100); MEAN PLATELET VOLUME 7.4 fL (7.4-10.4); PLATELET COUNT 201 x10^3/uL (130-400); RED BLOOD COUNT 2.38 x10^6/uL (3.82-5.3); RED CELL DISTRIBUTION WIDTH 15.3 % (9.6-15.2)
[2017-09-11] MEDS: MUPIROCIN OINT 2%, 22GM TP SCH ×2 (06:00→18:08)
[2017-09-11 06:04] LABS: BASOPHILS # (AUTO) 0.03 x10^3/uL (0-0.1); BASOPHILS % (AUTO) 0 % (0-1); EOSINOPHILS # (AUTO) 0.09 x10^3/uL (0-0.4); EOSINOPHILS % (AUTO) 1 % (1-7); LYMPHOCYTES # (AUTO) 0.95 x10^3/uL (1-3.4); LYMPHOCYTES % (AUTO) 11 % (22-44); MD SCAN; MONOCYTES # (AUTO) 0.68 x10^3/uL (0.2-0.8); MONOCYTES % (AUTO) 8 % (2-9); NEUTROPHILS # (AUTO) 6.66 x10^3/uL (1.8-6.8); NEUTROPHILS % (AUTO) 79 % (42-75)
[2017-09-11 06:43] VITALS: BP 124/69
[2017-09-11] MEDS: CEFTRIAXONE PMX 2GM/50ML 50 ML IV SCH (09:41)
[2017-09-11] MEDS: AMITRIPTYLINE 25 MG TABLET PO SCH ×3 (09:41→20:50)
[2017-09-11] MEDS: CHOLECALCIFEROL 1,000 UNIT TABLET PO SCH (09:41)
[2017-09-11] MEDS: SENNA/DOCUSATE TABLET PO SCH (09:41)
[2017-09-11] MEDS: FLUOXETINE HCL 20 MG CAPSULE PO SCH (09:41)
[2017-09-11] MEDS: OMEPRAZOLE 20 MG CAPSULE.DR PO SCH (09:42)
[2017-09-11] MEDS: METOPROLOL TARTRATE 25 MG TABLET PO SCH ×2 (09:43→20:51)
[2017-09-11] MEDS: FERROUS SULFATE 325 MG TABLET PO SCH (09:44)
[2017-09-11] MEDS: ASPIRIN 81 MG TABLET EC PO SCH (10:41)
[2017-09-11] MEDS: TICAGRELOR 90 MG TABLET PO SCH ×2 (10:41→20:50)
[2017-09-11 13:34] VITALS: BP 129/67
[2017-09-11] MEDS ORDERED: MAGNESIUM SULFATE PMX 2GM/50ML 50 ML IV ONE (14:00)
[2017-09-11 14:53] LABS: OCCULT BLOOD POSITIVE (NEGATIVE)
[2017-09-11] MEDS: PANTOPRAZOLE 40 MG IV IVPush SCH (15:29)
[2017-09-11] MEDS: SUCRALFATE 1 GM/10 ML UDC PO SCH ×2 (15:29→20:51)
[2017-09-11 20:00] VITALS: BP 132/71
[2017-09-11] MEDS: ZOLPIDEM 5MG TABLET PO SCH (20:50)
[2017-09-11] MEDS: ATORVASTATIN 80 MG TABLET PO SCH (20:50)
[2017-09-12] VITALS (13 sets, daily range): BP systolic 111–150; BP diastolic 57–88
[2017-09-12] MEDS: PANTOPRAZOLE 40 MG IV IVPush SCH (03:50)
[2017-09-12 04:35] LABS: MEAN CORPUSCULAR HEMOGLOBIN 30.7 pg (27.0-34.8); MEAN CORPUSCULAR HGB CONC 32.8 g/dL (32.4-35.8); MEAN CORPUSCULAR VOLUME 93.7 fL (80-100); MEAN PLATELET VOLUME 7.3 fL (7.4-10.4); PLATELET COUNT 200 x10^3/uL (130-400)
[2017-09-12 04:45] LABS: CHLORIDE 112 mmol/L (98-107)
[2017-09-12 04:52] LABS: ALANINE AMINOTRANSFERASE 32 U/L (12-78); ALBUMIN 2.6 g/dL (3.4-5.0); ALKALINE PHOSPHATASE 129 U/L (45-117); ANION GAP 7 mmol/L (5-15); BILIRUBIN,TOTAL 0.6 mg/dL (0.2-1.0); CALCIUM 8.5 mg/dL (8.5-10.1); CREATININE 1.06 mg/dL (0.55-1.02); TOTAL PROTEIN 6.1 g/dL (6.4-8.2)
[2017-09-12] MEDS: MUPIROCIN OINT 2%, 22GM TP SCH ×2 (05:16→18:15)
[2017-09-12] MEDS: SUCRALFATE 1 GM/10 ML UDC PO SCH ×4 (05:16→20:22)
[2017-09-12 05:51] LABS: BASOPHILS # (AUTO) 0.15 x10^3/uL (0-0.1); BASOPHILS % (AUTO) 2 % (0-1); EOSINOPHILS # (AUTO) 0.12 x10^3/uL (0-0.4); EOSINOPHILS % (AUTO) 1 % (1-7); LYMPHOCYTES # (AUTO) 0.76 x10^3/uL (1-3.4); LYMPHOCYTES % (AUTO) 9 % (22-44); MD SCAN; MONOCYTES # (AUTO) 0.81 x10^3/uL (0.2-0.8); MONOCYTES % (AUTO) 9 % (2-9); NEUTROPHILS # (AUTO) 7.05 x10^3/uL (1.8-6.8); NEUTROPHILS % (AUTO) 79 % (42-75)
[2017-09-12] MEDS: AMITRIPTYLINE 25 MG TABLET PO SCH ×3 (08:16→20:22)
[2017-09-12] MEDS: CHOLECALCIFEROL 1,000 UNIT TABLET PO SCH (08:16)
[2017-09-12] MEDS: METOPROLOL TARTRATE 25 MG TABLET PO SCH ×2 (08:16→20:23)
[2017-09-12] MEDS: FERROUS SULFATE 325 MG TABLET PO SCH (08:16)
[2017-09-12] MEDS: FLUOXETINE HCL 20 MG CAPSULE PO SCH (08:16)
[2017-09-12] MEDS: SENNA/DOCUSATE TABLET PO SCH (08:17)
[2017-09-12] MEDS: TICAGRELOR 90 MG TABLET PO SCH ×2 (08:37→20:23)
[2017-09-12] MEDS: ASPIRIN 81 MG TABLET EC PO SCH (08:37)
[2017-09-12] MEDS ORDERED: FUROSEMIDE 40 MG/4 ML IV ONE (09:30)
[2017-09-12] MEDS: CEFTRIAXONE PMX 2GM/50ML 50 ML IV SCH (09:36)
[2017-09-12] MEDS ORDERED: PANTOPRAZOLE 80 MG in SODIUM CHLORIDE 0.9% 50 ML IV ONE (11:30)
[2017-09-12] MEDS: PANTOPRAZOLE 80 MG in SODIUM CHLORIDE 0.9% 100 ML IV SCH ×2 (13:50→20:24)
[2017-09-12] MEDS ORDERED: FUROSEMIDE 40 MG/4 ML ONE (14:25)
[2017-09-12] MEDS: ATORVASTATIN 80 MG TABLET PO SCH (20:22)
[2017-09-12] MEDS: ZOLPIDEM 5MG TABLET PO SCH (20:23)
[2017-09-13 01:45] VITALS: BP 137/74
[2017-09-13] MEDS: MUPIROCIN OINT 2%, 22GM TP SCH ×2 (05:12→16:39)
[2017-09-13 05:25] LABS: BASOPHILS # (AUTO) 0.03 x10^3/uL (0-0.1); BASOPHILS % (AUTO) 0 % (0-1); EOSINOPHILS # (AUTO) 0.21 x10^3/uL (0-0.4); EOSINOPHILS % (AUTO) 2 % (1-7); LYMPHOCYTES % (AUTO) 8 % (22-44); MD NO; MEAN CORPUSCULAR HEMOGLOBIN 31.4 pg (27.0-34.8); MEAN CORPUSCULAR HGB CONC 33.8 g/dL (32.4-35.8); MEAN CORPUSCULAR VOLUME 92.9 fL (80-100); MEAN PLATELET VOLUME 7.1 fL (7.4-10.4); MONOCYTES # (AUTO) 0.73 x10^3/uL (0.2-0.8); MONOCYTES % (AUTO) 9 % (2-9); NEUTROPHILS # (AUTO) 6.91 x10^3/uL (1.8-6.8); NEUTROPHILS % (AUTO) 81 % (42-75); PLATELET COUNT 230 x10^3/uL (130-400); RED BLOOD COUNT 3.02 x10^6/uL (3.82-5.3); RED CELL DISTRIBUTION WIDTH 15.3 % (9.6-15.2)
[2017-09-13] MEDS: SUCRALFATE 1 GM/10 ML UDC PO SCH ×4 (06:13→20:13)
[2017-09-13] MEDS: PANTOPRAZOLE 80 MG in SODIUM CHLORIDE 0.9% 100 ML IV SCH ×2 (06:14→17:42)
[2017-09-13 07:03] VITALS: BP 143/78
[2017-09-13] MEDS ORDERED: PROPOFOL 10 MG/ML, 20ML ONE (08:59)
[2017-09-13] MEDS: SENNA/DOCUSATE TABLET PO SCH (09:19)
[2017-09-13 10:00] VITALS: BP 147/75
[2017-09-13] MEDS: CHOLECALCIFEROL 1,000 UNIT TABLET PO SCH (10:12)
[2017-09-13] MEDS: FERROUS SULFATE 325 MG TABLET PO SCH (10:12)
[2017-09-13] MEDS: FLUOXETINE HCL 20 MG CAPSULE PO SCH (10:12)
[2017-09-13] MEDS: TICAGRELOR 90 MG TABLET PO SCH ×2 (10:12→20:13)
[2017-09-13] MEDS: AMITRIPTYLINE 25 MG TABLET PO SCH ×3 (10:12→20:13)
[2017-09-13] MEDS: ASPIRIN 81 MG TABLET EC PO SCH (10:12)
[2017-09-13] MEDS: METOPROLOL TARTRATE 25 MG TABLET PO SCH ×2 (10:13→20:13)
[2017-09-13 12:57] VITALS: BP 148/78
[2017-09-13] MEDS ORDERED: GOLYTELY 4,000ML ORAL.SOL PO ONE (17:00)
[2017-09-13 19:32] VITALS: BP 136/77
[2017-09-13] MEDS: ZOLPIDEM 5MG TABLET PO SCH (20:13)
[2017-09-13] MEDS: ATORVASTATIN 80 MG TABLET PO SCH (20:13)
[2017-09-14 00:22] VITALS: BP 134/66
[2017-09-14] MEDS: PANTOPRAZOLE 80 MG in SODIUM CHLORIDE 0.9% 100 ML IV SCH (03:27)
[2017-09-14] MEDS: MUPIROCIN OINT 2%, 22GM TP SCH ×2 (05:20→15:34)
[2017-09-14 05:43] LABS: BASOPHILS # (AUTO) 0.04 x10^3/uL (0-0.1); BASOPHILS % (AUTO) 0 % (0-1); EOSINOPHILS # (AUTO) 0.22 x10^3/uL (0-0.4); EOSINOPHILS % (AUTO) 2 % (1-7); LYMPHOCYTES # (AUTO) 0.67 x10^3/uL (1-3.4); LYMPHOCYTES % (AUTO) 7 % (22-44); MD NO; MEAN CORPUSCULAR HEMOGLOBIN 31.1 pg (27.0-34.8); MEAN CORPUSCULAR HGB CONC 33.5 g/dL (32.4-35.8); MEAN CORPUSCULAR VOLUME 92.8 fL (80-100); MEAN PLATELET VOLUME 7.2 fL (7.4-10.4); MONOCYTES # (AUTO) 0.93 x10^3/uL (0.2-0.8); MONOCYTES % (AUTO) 10 % (2-9); NEUTROPHILS # (AUTO) 7.27 x10^3/uL (1.8-6.8); NEUTROPHILS % (AUTO) 80 % (42-75); PLATELET COUNT 258 x10^3/uL (130-400); RED CELL DISTRIBUTION WIDTH 15.5 % (9.6-15.2)
[2017-09-14 05:45] LABS: ANION GAP 10 mmol/L (5-15); CALCIUM 8.9 mg/dL (8.5-10.1); CHLORIDE 109 mmol/L (98-107); CREATININE 0.98 mg/dL (0.55-1.02)
[2017-09-14] MEDS: SUCRALFATE 1 GM/10 ML UDC PO SCH ×4 (07:30→20:12)
[2017-09-14] MEDS: SENNA/DOCUSATE TABLET PO SCH (07:30)
[2017-09-14] MEDS ORDERED: ONDANSETRON 2MG/ML, 2ML IV PRN (09:30)
[2017-09-14] MEDS ORDERED: FENTANYL PF 100 MCG/2ML IV PRN (09:30)
[2017-09-14] MEDS ORDERED: ACETAMINOPHEN 325 MG TABLET PO PRN (09:30)
[2017-09-14 09:54] VITALS: BP 154/80
[2017-09-14] MEDS: FLUOXETINE HCL 20 MG CAPSULE PO SCH (09:56)
[2017-09-14] MEDS: CHOLECALCIFEROL 1,000 UNIT TABLET PO SCH (09:56)
[2017-09-14] MEDS: ASPIRIN 81 MG TABLET EC PO SCH (09:56)
[2017-09-14] MEDS: FERROUS SULFATE 325 MG TABLET PO SCH (09:57)
[2017-09-14] MEDS: METOPROLOL TARTRATE 25 MG TABLET PO SCH ×2 (09:57→20:12)
[2017-09-14] MEDS: TICAGRELOR 90 MG TABLET PO SCH ×2 (09:57→20:12)
[2017-09-14] MEDS: AMITRIPTYLINE 25 MG TABLET PO SCH ×3 (09:57→20:12)
[2017-09-14] MEDS ORDERED: ASPI-621 PO (13:36)
[2017-09-14] MEDS ORDERED: TICA90TA PO (13:36)
[2017-09-14] MEDS ORDERED: LISI5TAB7 PO (13:36)
[2017-09-14] MEDS ORDERED: NITR0.4T SL (13:36)
[2017-09-14] MEDS ORDERED: OXYM15SP8 NAS (13:36)
[2017-09-14] MEDS ORDERED: METO25TA35 PO (13:36)
[2017-09-14 14:19] VITALS: BP 150/81
[2017-09-14] MEDS: LISINOPRIL 5 MG TABLET PO SCH (14:21)
[2017-09-14 14:30] VITALS: BP 159/78
[2017-09-14 19:21] VITALS: BP 146/75
[2017-09-14] MEDS: ATORVASTATIN 80 MG TABLET PO SCH (20:12)
[2017-09-14] MEDS: ZOLPIDEM 5MG TABLET PO SCH (20:12)
[2017-09-15 03:04] VITALS: BP 118/64
[2017-09-15] MEDS: MUPIROCIN OINT 2%, 22GM TP SCH (05:05)
[2017-09-15 05:37] LABS: BASOPHILS # (AUTO) 0.03 x10^3/uL (0-0.1); BASOPHILS % (AUTO) 0 % (0-1); EOSINOPHILS # (AUTO) 0.13 x10^3/uL (0-0.4); EOSINOPHILS % (AUTO) 1 % (1-7); LYMPHOCYTES # (AUTO) 0.72 x10^3/uL (1-3.4); LYMPHOCYTES % (AUTO) 8 % (22-44); MD NO; MEAN CORPUSCULAR HEMOGLOBIN 31.7 pg (27.0-34.8); MEAN CORPUSCULAR VOLUME 93.2 fL (80-100); MEAN PLATELET VOLUME 7.3 fL (7.4-10.4); MONOCYTES # (AUTO) 0.88 x10^3/uL (0.2-0.8); MONOCYTES % (AUTO) 10 % (2-9); NEUTROPHILS # (AUTO) 7.41 x10^3/uL (1.8-6.8); NEUTROPHILS % (AUTO) 81 % (42-75); PLATELET COUNT 274 x10^3/uL (130-400); RED BLOOD COUNT 3.17 x10^6/uL (3.82-5.3); RED CELL DISTRIBUTION WIDTH 15.5 % (9.6-15.2)
[2017-09-15 05:43] LABS: ANION GAP 8 mmol/L (5-15); CALCIUM 8.8 mg/dL (8.5-10.1); CHLORIDE 111 mmol/L (98-107); CREATININE 1.17 mg/dL (0.55-1.02)
[2017-09-15 07:40] VITALS: BP 133/74
[2017-09-15] MEDS: SENNA/DOCUSATE TABLET PO SCH (08:24)
[2017-09-15] MEDS: SUCRALFATE 1 GM/10 ML UDC PO SCH ×2 (08:35→11:21)
[2017-09-15] MEDS: CHOLECALCIFEROL 1,000 UNIT TABLET PO SCH (08:36)
[2017-09-15] MEDS: FERROUS SULFATE 325 MG TABLET PO SCH (08:36)
[2017-09-15] MEDS: LISINOPRIL 5 MG TABLET PO SCH (08:36)
[2017-09-15] MEDS: TICAGRELOR 90 MG TABLET PO SCH (08:36)
[2017-09-15] MEDS: AMITRIPTYLINE 25 MG TABLET PO SCH (08:36)
[2017-09-15] MEDS: ASPIRIN 81 MG TABLET EC PO SCH (08:36)
[2017-09-15] MEDS: METOPROLOL TARTRATE 25 MG TABLET PO SCH (08:36)
[2017-09-15] MEDS: FLUOXETINE HCL 20 MG CAPSULE PO SCH (08:36)
[2017-09-15] MEDS ORDERED: FERR325T18 PO (09:51)
== END 2017-09-15 13:20 | disposition home or self-care (01) | DRG 248 ==
LOC: ED 13:23 → 4WST 13:24 → SUATTDRO 13:36 → 4WST 14:26 → ED 14:53 → 5SO 17:48 → CCU 09-07 13:46 → 5SO 09-09 10:25 → DCLOUNGE 09-15 12:45
PROVIDERS: ADMIT Hospitalist; ATTEND Hospitalist
PROC: 4A023N8 Measurement of Cardiac Sampling and Pressure, Bilateral, Percutaneous Approach (ICD-10-PCS; 2017-09-07)
PROC: B2111ZZ Fluoroscopy of Multiple Coronary Arteries using Low Osmolar Contrast (ICD-10-PCS; 2017-09-07)
PROC: B2151ZZ Fluoroscopy of Left Heart using Low Osmolar Contrast (ICD-10-PCS; 2017-09-07)
PROC: 02703GZ Dilation of Coronary Artery, One Artery with Four or More Intraluminal Devices, Percutaneous Approach (ICD-10-PCS; principal; 2017-09-07 13:40)
PROC: 30233N1 Transfusion of Nonautologous Red Blood Cells into Peripheral Vein, Percutaneous Approach (ICD-10-PCS; 2017-09-12)
PROC: 0DJ08ZZ Inspection of Upper Intestinal Tract, Via Natural or Artificial Opening Endoscopic (ICD-10-PCS; 2017-09-13)
PROC: 0DJD8ZZ Inspection of Lower Intestinal Tract, Via Natural or Artificial Opening Endoscopic (ICD-10-PCS; 2017-09-14)
DX: I25.10 Atherosclerotic heart disease of native coronary artery without angina pectoris (principal); J96.01 Acute respiratory failure with hypoxia; N17.0 Acute kidney failure with tubular necrosis; I21.3 ST elevation (STEMI) myocardial infarction of unspecified site; D68.69 Other thrombophilia; D62 Acute posthemorrhagic anemia; I13.0 Hypertensive heart and chronic kidney disease with heart failure and stage 1 through stage 4 chronic kidney disease, or unspecified chronic kidney disease; I44.2 Atrioventricular block, complete; I48.1 Persistent atrial fibrillation; N39.0 Urinary tract infection, site not specified; R57.9 Shock, unspecified; K92.2 Gastrointestinal hemorrhage, unspecified; I08.1 Rheumatic disorders of both mitral and tricuspid valves; E11.22 Type 2 diabetes mellitus with diabetic chronic kidney disease; B96.20 Unspecified Escherichia coli [E. coli] as the cause of diseases classified elsewhere; E78.5 Hyperlipidemia, unspecified; G89.4 Chronic pain syndrome; I27.20 Pulmonary hypertension, unspecified; I48.2 Chronic atrial fibrillation; M34.9 Systemic sclerosis, unspecified; N18.3 Chronic kidney disease, stage 3 (moderate); R04.0 Epistaxis; T45.515A Adverse effect of anticoagulants, initial encounter; Z79.82 Long term (current) use of aspirin; Z79.01 Long term (current) use of anticoagulants; Z87.891 Personal history of nicotine dependence; I25.2 Old myocardial infarction; Z79.899 Other long term (current) drug therapy; Z81.8 Family history of other mental and behavioral disorders; Z87.01 Personal history of pneumonia (recurrent); Z87.11 Personal history of peptic ulcer disease; Z90.710 Acquired absence of both cervix and uterus; Z91.041 Radiographic dye allergy status; Z95.3 Presence of xenogenic heart valve; Z88.8 Allergy status to other drugs, medicaments and biological substances
CPT/HCPCS: 36415; 36600; 70450; 71045; 71046; 74018; 76700; 78582; 80048; 80053; 80069; 81001; 82040; 82272; 82550; 82803; 82962; 83605; 83735; 83880; 84100; 84484; 85014; 85018; 85025; 85610; 85730; 86850; 86900; 86923; 87040; 87077; 87081; 87086; 87186; 93005; 93306; 93460; 93567; 96360; 99156; 99157; 99285; C1769; C1894; C9600; J0461; J0583; J0696; J1265; J1644; J1940; J2250; J2704; J3010; J3430; J3490; A9540; A9558; C1725; C1757; C1874; C1887; C9113; C9898; J1200; J2270; J2930; J3475; J7030; P9016; Q9967

== ENCOUNTER 2017-10-18 07:49 | Day surgery (SDC) | payer OTHER ==
[2017-10-17 11:07] LABS: BASOPHILS # (AUTO) 0.05 x10^3/uL (0-0.1); BASOPHILS % (AUTO) 1 % (0-1); EOSINOPHILS # (AUTO) 0.04 x10^3/uL (0-0.4); EOSINOPHILS % (AUTO) 1 % (1-7); LYMPHOCYTES # (AUTO) 0.85 x10^3/uL (1-3.4); LYMPHOCYTES % (AUTO) 11 % (22-44); MD NO; MEAN CORPUSCULAR HGB CONC 33.8 g/dL (32.4-35.8); MEAN CORPUSCULAR VOLUME 94.9 fL (80-100); MEAN PLATELET VOLUME 8.7 fL (7.4-10.4); MONOCYTES # (AUTO) 0.72 x10^3/uL (0.2-0.8); MONOCYTES % (AUTO) 9 % (2-9); NEUTROPHILS # (AUTO) 6.09 x10^3/uL (1.8-6.8); NEUTROPHILS % (AUTO) 79 % (42-75); PLATELET COUNT 143 x10^3/uL (130-400); RED CELL DISTRIBUTION WIDTH 17.3 % (9.6-15.2)
[2017-10-17 11:23] LABS: ALANINE AMINOTRANSFERASE 36 U/L (12-78); ALBUMIN 3.5 g/dL (3.4-5.0); ANION GAP 6 mmol/L (5-15); CALCIUM 8.7 mg/dL (8.5-10.1); CHLORIDE 111 mmol/L (98-107); CREATININE 1.13 mg/dL (0.55-1.02)
[2017-10-17 11:25] LABS: ALKALINE PHOSPHATASE 123 U/L (45-117); BILIRUBIN,TOTAL 0.5 mg/dL (0.2-1.0); TOTAL PROTEIN 7.7 g/dL (6.4-8.2)
[~2017-10-18] VITALS: Ht 170.2 cm; Wt 78.8 kg
[~2017-10-18 07:49] MED LIST changes: +ASPI-496 PO; +ASPI-621 PO; +ATOR-2 PO; +FERR324T5 PO; +FERR325T18 PO; +FURO20TA3 PO; +LISI5TAB7 PO; +LOPE2CAP94 PO; +METO25TA35 PO; +METO25TA91 PO; +MULT-516 PO; +NITR0.4T SL; +NITR0.4T28 SL; +OXYM15SP8 NAS; +PIOG30TA67 PO; +POTA10TA5 PO; +PREG150C PO; -SIMV80TA3 PO; +SIMV80TA7 PO; +TICA90TA PO
[2017-10-18] MEDS ORDERED: LACTATED RINGERS 1,000 ML IV SCH (08:43)
[2017-10-18 08:46] VITALS: BP 135/65
[2017-10-18] MEDS ORDERED: PROPOFOL 10 MG/ML, 50ML ONE (10:20)
== END 2017-10-18 13:30 | disposition home or self-care (01) ==
LOC: OUT 07:49
PROVIDERS: ATTEND Internal Medicine Geriatric Medicine
DX: K31.819 Angiodysplasia of stomach and duodenum without bleeding (principal); I12.9 Hypertensive chronic kidney disease with stage 1 through stage 4 chronic kidney disease, or unspecified chronic kidney disease; E11.22 Type 2 diabetes mellitus with diabetic chronic kidney disease; N18.9 Chronic kidney disease, unspecified; I34.0 Nonrheumatic mitral (valve) insufficiency; I36.1 Nonrheumatic tricuspid (valve) insufficiency; E78.5 Hyperlipidemia, unspecified; I25.10 Atherosclerotic heart disease of native coronary artery without angina pectoris; I25.2 Old myocardial infarction; I48.91 Unspecified atrial fibrillation; Z79.82 Long term (current) use of aspirin; Z87.891 Personal history of nicotine dependence; Z88.1 Allergy status to other antibiotic agents; Z88.8 Allergy status to other drugs, medicaments and biological substances; Z79.899 Other long term (current) drug therapy; Z98.890 Other specified postprocedural states; Z79.01 Long term (current) use of anticoagulants; Z87.01 Personal history of pneumonia (recurrent); Z87.440 Personal history of urinary (tract) infections
CPT/HCPCS: 36415; 43270; 80053; 85025; J2704; J7120

== ENCOUNTER 2017-12-15 02:52 | Inpatient (IN) | payer OTHER ==
[~2017-12-15] VITALS: Ht 167.6 cm; Wt 51.9 kg
[2017-12-15] VITALS (7 sets, daily range): BP systolic 70–128; BP diastolic 33–76
[2017-12-15] MEDS ORDERED: SODIUM CHLORIDE 0.9% 1,000ML IVBOLUS ONE (03:30)
[2017-12-15 03:44] LABS: MEAN CORPUSCULAR HEMOGLOBIN 31.2 pg (27.0-34.8); MEAN CORPUSCULAR HGB CONC 33.3 g/dL (32.4-35.8); MEAN CORPUSCULAR VOLUME 93.8 fL (80-100); RED BLOOD COUNT 2.84 x10^6/uL (3.82-5.3); RED CELL DISTRIBUTION WIDTH 16.2 % (9.6-15.2)
[2017-12-15 03:50] LABS: ALANINE AMINOTRANSFERASE 40 U/L (12-78); ALBUMIN 3.1 g/dL (3.4-5.0); ANION GAP 7 mmol/L (5-15); CALCIUM 8.5 mg/dL (8.5-10.1); CHLORIDE 110 mmol/L (98-107); CREATININE 2.13 mg/dL (0.55-1.02)
[2017-12-15 03:54] LABS: ALKALINE PHOSPHATASE 101 U/L (45-117); BILIRUBIN,TOTAL 0.8 mg/dL (0.2-1.0); TOTAL PROTEIN 6.4 g/dL (6.4-8.2); TROPONIN I 0.032 ng/mL (0.000-0.045)
[2017-12-15 03:59] LABS: BASOPHILS % (AUTO) 0 % (0-1); EOSINOPHILS % (AUTO) 0 % (1-7); LYMPHOCYTES # (AUTO) 0.19 x10^3/uL (1-3.4); LYMPHOCYTES % (AUTO) 3 % (22-44); MD SCAN; MEAN PLATELET VOLUME 10.3 fL (7.4-10.4); MONOCYTES # (AUTO) 0.34 x10^3/uL (0.2-0.8); MONOCYTES % (AUTO) 5 % (2-9); NEUTROPHILS # (AUTO) 5.88 x10^3/uL (1.8-6.8); NEUTROPHILS % (AUTO) 92 % (42-75); PLATELET COUNT 75 x10^3/uL (130-400)
[2017-12-15 06:34] LABS: MICROSCOPIC AUTO
[2017-12-15 06:38] LABS: CULTURE INDICATED? YES
[2017-12-15] MEDS ORDERED: hydrALAzine 20 MG/ML, 1ML IVPush PRN (07:00)
[2017-12-15] MEDS ORDERED: BISACODYL 10 MG SUPP PR PRN (07:00)
[2017-12-15] MEDS ORDERED: ONDANSETRON 2MG/ML, 2ML IVPush PRN (07:00)
[2017-12-15] MEDS ORDERED: DOCUSATE 100 MG CAPSULE PO PRN (07:00)
[2017-12-15] MEDS ORDERED: ACETAMINOPHEN 325 MG TABLET PO PRN (07:00)
[2017-12-15] MEDS ORDERED: POLYETHYLENE GLYCOL 17 GM PACKET PO PRN (07:00)
[2017-12-15 07:42] LABS: TRANSFERRIN 292 mg/dL (200-360)
[2017-12-15 07:47] LABS: IRON LEVEL 33 mcg/dL (50-170); TOTAL IRON BINDING CAPACITY 390 mcg/dL (250-450)
[2017-12-15 07:48] LABS: % IRON SATURATION 8 % (20-55)
[2017-12-15] MEDS: PIOGLITAZONE 15 MG TABLET PO SCH (08:18)
[2017-12-15] MEDS: MULTIVITAMIN 1 TABLET PO SCH (08:19)
[2017-12-15] MEDS: FUROSEMIDE 20 MG/2 ML IV SCH (08:19)
[2017-12-15] MEDS: ROPINIROLE 0.5MG TABLET PO SCH ×2 (08:19→20:22)
[2017-12-15] MEDS: ASPIRIN 81 MG TABLET EC PO SCH (08:19)
[2017-12-15] MEDS: CHOLECALCIFEROL 1,000 UNIT TABLET PO SCH ×2 (08:19→20:22)
[2017-12-15] MEDS: LOPERAMIDE 2 MG CAPSULE PO SCH ×2 (08:20→20:22)
[2017-12-15] MEDS: PREGABALIN 150 MG CAPSULE PO SCH ×2 (08:20→20:22)
[2017-12-15] MEDS: LISINOPRIL 5 MG TABLET PO SCH (08:20)
[2017-12-15] MEDS: POTASSIUM CHLORIDE 10 MEQ TABLET.ER PO SCH ×3 (08:20→20:22)
[2017-12-15] MEDS: METOPROLOL SUCCINATE 25 MG TAB.ER.24H PO SCH ×2 (08:21→21:19)
[2017-12-15] MEDS: TICAGRELOR 90 MG TABLET PO SCH ×2 (08:21→20:21)
[2017-12-15] MEDS: SODIUM CHLORIDE FLUSH 10ML SYR IVF SCH ×2 (08:22→20:21)
[2017-12-15] MEDS: CEFTRIAXONE PMX 1GM/50ML 50 ML IV SCH (08:33)
[2017-12-15] MEDS: FLUOXETINE HCL 20 MG CAPSULE PO SCH (08:43)
[2017-12-15] MEDS: ATORVASTATIN 80 MG TABLET PO SCH (20:22)
[2017-12-15] MEDS: ESTRADIOL 1 MG TABLET PO SCH (20:22)
[2017-12-15] MEDS: TRIAZOLAM 0.25 MG PO SCH (20:22)
[2017-12-15] MEDS ORDERED: SODIUM CHLORIDE 0.9%, 500ML IVBOLUS ONE (21:30)
[2017-12-16 01:23] VITALS: BP 94/54
[2017-12-16 03:52] LABS: MICROSCOPIC AUTO
[2017-12-16 03:57] LABS: CULTURE INDICATED? YES
[2017-12-16 04:01] LABS: POTASSIUM,URINE RANDOM 48 mmol/L; SODIUM,URINE RANDOM 12 mmol/L
[2017-12-16 04:02] LABS: CHLORIDE,URINE RANDOM < 10 mmol/L
[2017-12-16 05:09] LABS: ANION GAP 6 mmol/L (5-15); CALCIUM 8.1 mg/dL (8.5-10.1); CHLORIDE 112 mmol/L (98-107); CREATININE 1.94 mg/dL (0.55-1.02)
[2017-12-16 05:10] LABS: MEAN CORPUSCULAR HEMOGLOBIN 31.3 pg (27.0-34.8); MEAN CORPUSCULAR HGB CONC 33.6 g/dL (32.4-35.8); MEAN CORPUSCULAR VOLUME 93.2 fL (80-100); MEAN PLATELET VOLUME 9.7 fL (7.4-10.4); PLATELET COUNT 62 x10^3/uL (130-400); RED BLOOD COUNT 2.62 x10^6/uL (3.82-5.3); RED CELL DISTRIBUTION WIDTH 16.4 % (9.6-15.2)
[2017-12-16 05:36] LABS: BASOPHILS # (AUTO) 0.01 x10^3/uL (0-0.1); BASOPHILS % (AUTO) 0 % (0-1); EOSINOPHILS # (AUTO) 0.02 x10^3/uL (0-0.4); EOSINOPHILS % (AUTO) 0 % (1-7); LYMPHOCYTES # (AUTO) 0.48 x10^3/uL (1-3.4); LYMPHOCYTES % (AUTO) 10 % (22-44); MD SCAN; MONOCYTES # (AUTO) 0.58 x10^3/uL (0.2-0.8); MONOCYTES % (AUTO) 12 % (2-9); NEUTROPHILS # (AUTO) 3.78 x10^3/uL (1.8-6.8); NEUTROPHILS % (AUTO) 78 % (42-75)
[2017-12-16 06:50] VITALS: BP 91/51
[2017-12-16] MEDS: CEFTRIAXONE PMX 1GM/50ML 50 ML IV SCH (07:57)
[2017-12-16] MEDS: FUROSEMIDE 20 MG/2 ML IV SCH (07:58)
[2017-12-16] MEDS: SODIUM CHLORIDE FLUSH 10ML SYR IVF SCH ×2 (08:04→20:59)
[2017-12-16] MEDS: PREGABALIN 150 MG CAPSULE PO SCH ×2 (08:24→21:00)
[2017-12-16] MEDS: LOPERAMIDE 2 MG CAPSULE PO SCH ×2 (08:24→21:00)
[2017-12-16] MEDS: POTASSIUM CHLORIDE 10 MEQ TABLET.ER PO SCH ×2 (08:24→08:39)
[2017-12-16] MEDS: FLUOXETINE HCL 20 MG CAPSULE PO SCH (08:24)
[2017-12-16] MEDS: MULTIVITAMIN 1 TABLET PO SCH (08:24)
[2017-12-16] MEDS: PIOGLITAZONE 15 MG TABLET PO SCH (08:24)
[2017-12-16] MEDS: CHOLECALCIFEROL 1,000 UNIT TABLET PO SCH ×2 (08:24→21:00)
[2017-12-16] MEDS: ASPIRIN 81 MG TABLET EC PO SCH (08:24)
[2017-12-16] MEDS: TICAGRELOR 90 MG TABLET PO SCH ×2 (08:24→21:00)
[2017-12-16] MEDS: ROPINIROLE 0.5MG TABLET PO SCH ×2 (08:24→20:59)
[2017-12-16] MEDS: LISINOPRIL 5 MG TABLET PO SCH (08:25)
[2017-12-16] MEDS: METOPROLOL SUCCINATE 25 MG TAB.ER.24H PO SCH ×2 (08:25→21:40)
[2017-12-16] MEDS: POTASSIUM CHLORIDE 20 MEQ TAB.ER.PRT PO SCH (12:46)
[2017-12-16 13:21] VITALS: BP 118/70
[2017-12-16 19:27] VITALS: BP_SYST 102; BP_SYST 114; BP_DIAS 48; BP_DIAS 65
[2017-12-16 20:43] VITALS: BP 104/54
[2017-12-16] MEDS: ATORVASTATIN 80 MG TABLET PO SCH (20:59)
[2017-12-16] MEDS: ESTRADIOL 1 MG TABLET PO SCH (21:00)
[2017-12-16] MEDS: TRIAZOLAM 0.25 MG PO SCH (21:00)
[2017-12-17 02:13] VITALS: BP_SYST 83; BP_SYST 98; BP_DIAS 43; BP_DIAS 63
[2017-12-17 03:44] LABS: OCCULT BLOOD POSITIVE (NEGATIVE)
[2017-12-17 05:20] LABS: ANION GAP 7 mmol/L (5-15); CALCIUM 8.1 mg/dL (8.5-10.1); CHLORIDE 112 mmol/L (98-107); CREATININE 1.57 mg/dL (0.55-1.02)
[2017-12-17 06:02] LABS: HEMOGLOBIN A1C 5.4 % (4.2-6.3)
[2017-12-17 07:04] VITALS: BP 118/67
[2017-12-17] MEDS ORDERED: OMEPRAZOLE 20 MG CAPSULE.DR PO SCH ×2 (09:00→21:00)
[2017-12-17] MEDS ORDERED: IRON SUCROSE COMPLEX 100MG/5ML IV SCH (09:00)
[2017-12-17] MEDS: POTASSIUM CHLORIDE 20 MEQ TAB.ER.PRT PO SCH (09:27)
[2017-12-17] MEDS: PREGABALIN 150 MG CAPSULE PO SCH ×2 (09:27→20:21)
[2017-12-17] MEDS: MULTIVITAMIN 1 TABLET PO SCH (09:28)
[2017-12-17] MEDS: ASPIRIN 81 MG TABLET EC PO SCH (09:28)
[2017-12-17] MEDS: LISINOPRIL 5 MG TABLET PO SCH (09:28)
[2017-12-17] MEDS: METOPROLOL SUCCINATE 25 MG TAB.ER.24H PO SCH (09:28)
[2017-12-17] MEDS: LOPERAMIDE 2 MG CAPSULE PO SCH ×2 (09:28→20:21)
[2017-12-17] MEDS: FLUOXETINE HCL 20 MG CAPSULE PO SCH (09:28)
[2017-12-17] MEDS: FUROSEMIDE 20 MG TABLET PO SCH (09:28)
[2017-12-17] MEDS: PIOGLITAZONE 15 MG TABLET PO SCH (09:28)
[2017-12-17] MEDS: CHOLECALCIFEROL 1,000 UNIT TABLET PO SCH ×2 (09:28→20:20)
[2017-12-17] MEDS: TICAGRELOR 90 MG TABLET PO SCH ×2 (09:28→20:20)
[2017-12-17] MEDS: ROPINIROLE 0.5MG TABLET PO SCH ×2 (09:28→20:21)
[2017-12-17] MEDS: SODIUM CHLORIDE FLUSH 10ML SYR IVF SCH ×2 (09:34→20:20)
[2017-12-17] MEDS: CEFTRIAXONE PMX 1GM/50ML 50 ML IV SCH (09:34)
[2017-12-17 15:09] VITALS: BP 91/54
[2017-12-17 18:48] VITALS: BP 115/53
[2017-12-17] MEDS: ATORVASTATIN 80 MG TABLET PO SCH (20:21)
[2017-12-17] MEDS: ESTRADIOL 1 MG TABLET PO SCH (20:21)
[2017-12-17] MEDS: TRIAZOLAM 0.25 MG PO SCH (20:23)
[2017-12-18 01:02] VITALS: BP 100/61
[2017-12-18 06:50] VITALS: BP 115/63
[2017-12-18] MEDS: ASPIRIN 81 MG TABLET EC PO SCH (08:33)
[2017-12-18] MEDS: PREGABALIN 150 MG CAPSULE PO SCH ×2 (08:33→17:49)
[2017-12-18] MEDS: MULTIVITAMIN 1 TABLET PO SCH (08:33)
[2017-12-18] MEDS: IRON SUCROSE COMPLEX 100MG/5ML IV SCH (08:34)
[2017-12-18] MEDS: CLOPIDOGREL 75 MG TABLET PO SCH (08:34)
[2017-12-18] MEDS: LOPERAMIDE 2 MG CAPSULE PO SCH ×2 (08:35→20:51)
[2017-12-18] MEDS: ROPINIROLE 0.5MG TABLET PO SCH ×2 (08:35→17:49)
[2017-12-18] MEDS: PIOGLITAZONE 15 MG TABLET PO SCH (08:36)
[2017-12-18] MEDS: FUROSEMIDE 20 MG TABLET PO SCH (08:37)
[2017-12-18] MEDS: CHOLECALCIFEROL 1,000 UNIT TABLET PO SCH ×2 (08:37→20:51)
[2017-12-18] MEDS: LISINOPRIL 5 MG TABLET PO SCH (08:38)
[2017-12-18] MEDS: POTASSIUM CHLORIDE 20 MEQ TAB.ER.PRT PO SCH (08:38)
[2017-12-18] MEDS: METOPROLOL SUCCINATE 25 MG TAB.ER.24H PO SCH (08:40)
[2017-12-18] MEDS: CEFTRIAXONE PMX 1GM/50ML 50 ML IV SCH (08:41)
[2017-12-18] MEDS: SODIUM CHLORIDE FLUSH 10ML SYR IVF SCH ×2 (08:41→20:51)
[2017-12-18] MEDS: FLUOXETINE HCL 20 MG CAPSULE PO SCH (08:47)
[2017-12-18 13:29] VITALS: BP 113/67
[2017-12-18 14:21] LABS: HEMOGRAM NOTE RECHECKED; MEAN CORPUSCULAR HEMOGLOBIN 29.7 pg (27.0-34.8); MEAN CORPUSCULAR HGB CONC 31.8 g/dL (32.4-35.8); MEAN CORPUSCULAR VOLUME 93.5 fL (80-100); MEAN PLATELET VOLUME 10.7 fL (7.4-10.4); PLATELET COUNT 99 x10^3/uL (130-400); RED BLOOD COUNT 3.06 x10^6/uL (3.82-5.3); RED CELL DISTRIBUTION WIDTH 16.1 % (9.6-15.2)
[2017-12-18 14:51] LABS: BASOPHILS # (AUTO) 0.02 x10^3/uL (0-0.1); BASOPHILS % (AUTO) 1 % (0-1); EOSINOPHILS # (AUTO) 0.02 x10^3/uL (0-0.4); EOSINOPHILS % (AUTO) 0 % (1-7); LYMPHOCYTES # (AUTO) 0.57 x10^3/uL (1-3.4); LYMPHOCYTES % (AUTO) 13 % (22-44); MD SCAN; MONOCYTES # (AUTO) 0.36 x10^3/uL (0.2-0.8); MONOCYTES % (AUTO) 8 % (2-9); NEUTROPHILS # (AUTO) 3.59 x10^3/uL (1.8-6.8); NEUTROPHILS % (AUTO) 79 % (42-75)
[2017-12-18 19:16] VITALS: BP 114/64
[2017-12-18] MEDS: ESTRADIOL 1 MG TABLET PO SCH (20:51)
[2017-12-18] MEDS: TRIAZOLAM 0.25 MG PO SCH (20:52)
[2017-12-18] MEDS: ATORVASTATIN 80 MG TABLET PO SCH (20:52)
[2017-12-19 00:45] VITALS: BP 112/68
[2017-12-19 06:11] LABS: CHLORIDE 111 mmol/L (98-107)
[2017-12-19 06:16] LABS: ANION GAP 8 mmol/L (5-15); CALCIUM 8.6 mg/dL (8.5-10.1); CREATININE 1.48 mg/dL (0.55-1.02)
[2017-12-19 06:18] LABS: MEAN CORPUSCULAR HEMOGLOBIN 31.3 pg (27.0-34.8); MEAN CORPUSCULAR HGB CONC 33.5 g/dL (32.4-35.8); MEAN CORPUSCULAR VOLUME 93.4 fL (80-100); MEAN PLATELET VOLUME 10.8 fL (7.4-10.4); PLATELET COUNT 83 x10^3/uL (130-400); RED BLOOD COUNT 2.74 x10^6/uL (3.82-5.3); RED CELL DISTRIBUTION WIDTH 16.6 % (9.6-15.2)
[2017-12-19 06:49] LABS: BASOPHILS # (AUTO) 0.03 x10^3/uL (0-0.1); BASOPHILS % (AUTO) 1 % (0-1); EOSINOPHILS # (AUTO) 0.04 x10^3/uL (0-0.4); EOSINOPHILS % (AUTO) 1 % (1-7); LYMPHOCYTES # (AUTO) 0.87 x10^3/uL (1-3.4); LYMPHOCYTES % (AUTO) 22 % (22-44); MD SCAN; MONOCYTES # (AUTO) 0.42 x10^3/uL (0.2-0.8); MONOCYTES % (AUTO) 11 % (2-9); NEUTROPHILS # (AUTO) 2.66 x10^3/uL (1.8-6.8); NEUTROPHILS % (AUTO) 66 % (42-75)
[2017-12-19 07:04] VITALS: BP 127/59
[2017-12-19] MEDS ORDERED: PANTOPRAZOLE 20MG TABLET PO SCH (07:30)
[2017-12-19] MEDS: IRON SUCROSE COMPLEX 100MG/5ML IV SCH (09:36)
[2017-12-19] MEDS: CEFTRIAXONE PMX 1GM/50ML 50 ML IV SCH ×2 (09:36→09:57)
[2017-12-19] MEDS: MULTIVITAMIN 1 TABLET PO SCH (09:38)
[2017-12-19] MEDS: PREGABALIN 150 MG CAPSULE PO SCH (09:38)
[2017-12-19] MEDS: FLUOXETINE HCL 20 MG CAPSULE PO SCH (09:38)
[2017-12-19] MEDS: POTASSIUM CHLORIDE 20 MEQ TAB.ER.PRT PO SCH (09:38)
[2017-12-19] MEDS: CLOPIDOGREL 75 MG TABLET PO SCH (09:39)
[2017-12-19] MEDS: ROPINIROLE 0.5MG TABLET PO SCH (09:39)
[2017-12-19] MEDS: CHOLECALCIFEROL 1,000 UNIT TABLET PO SCH (09:39)
[2017-12-19] MEDS: LOPERAMIDE 2 MG CAPSULE PO SCH (09:39)
[2017-12-19] MEDS: PIOGLITAZONE 15 MG TABLET PO SCH (09:39)
[2017-12-19] MEDS: FUROSEMIDE 20 MG TABLET PO SCH (09:39)
[2017-12-19] MEDS: LISINOPRIL 5 MG TABLET PO SCH (09:40)
[2017-12-19] MEDS: ASPIRIN 81 MG TABLET EC PO SCH (09:41)
[2017-12-19] MEDS: METOPROLOL SUCCINATE 25 MG TAB.ER.24H PO SCH (09:42)
[2017-12-19] MEDS: SODIUM CHLORIDE FLUSH 10ML SYR IVF SCH (09:42)
[2017-12-19 12:20] VITALS: BP 124/64
[2017-12-19] MEDS ORDERED: CLOP75TA PO (12:27)
== END 2017-12-19 13:34 | disposition home health service (06) | DRG 682 ==
LOC: ED 03:52 → EDIP 06:09 → 5SO 07:22 → DCLOUNGE 12-19 13:20
PROVIDERS: ADMIT Hospitalist; ATTEND Hospitalist
PROC: 0T9B70Z Drainage of Bladder with Drainage Device, Via Natural or Artificial Opening (ICD-10-PCS; principal; 2017-12-15)
DX: N17.0 Acute kidney failure with tubular necrosis (principal); I50.43 Acute on chronic combined systolic (congestive) and diastolic (congestive) heart failure; J96.91 Respiratory failure, unspecified with hypoxia; I13.0 Hypertensive heart and chronic kidney disease with heart failure and stage 1 through stage 4 chronic kidney disease, or unspecified chronic kidney disease; N39.0 Urinary tract infection, site not specified; E44.0 Moderate protein-calorie malnutrition; D68.69 Other thrombophilia; Z68.1 Body mass index [BMI] 19.9 or less, adult; D50.9 Iron deficiency anemia, unspecified; D69.6 Thrombocytopenia, unspecified; E11.22 Type 2 diabetes mellitus with diabetic chronic kidney disease; E86.0 Dehydration; E78.5 Hyperlipidemia, unspecified; I08.1 Rheumatic disorders of both mitral and tricuspid valves; I25.10 Atherosclerotic heart disease of native coronary artery without angina pectoris; I48.0 Paroxysmal atrial fibrillation; N18.3 Chronic kidney disease, stage 3 (moderate); Z79.01 Long term (current) use of anticoagulants; Z79.84 Long term (current) use of oral hypoglycemic drugs; Z82.49 Family history of ischemic heart disease and other diseases of the circulatory system; I25.2 Old myocardial infarction; Z87.891 Personal history of nicotine dependence; Z90.710 Acquired absence of both cervix and uterus; Z95.3 Presence of xenogenic heart valve; Z95.5 Presence of coronary angioplasty implant and graft; Z79.899 Other long term (current) drug therapy
CPT/HCPCS: 36415; 71045; 80048; 80053; 81001; 82272; 82436; 82570; 82728; 82962; 83036; 83540; 83550; 83605; 83880; 84133; 84145; 84300; 84466; 84484; 85025; 87040; 87077; 87086; 87186; 93005; 93306; 96374; 99285; G0378; J0696; J1756; J1940; J7030; J7040

== ENCOUNTER 2017-12-24 17:08 | Emergency (ER) | payer OTHER ==
[~2017-12-24 17:08] MED LIST changes: +CLOP75TA PO
[2017-12-24] MEDS ORDERED: PANT20TA3 PO (18:22)
[2017-12-24] MEDS ORDERED: ASPIRIN 81 MG TABLET CHEW ONE (18:56)
[2017-12-24] MEDS ORDERED: ASPIRIN 81 MG TABLET CHEW PO ONE (19:00)
[2017-12-24 19:21] LABS: BASOPHILS # (AUTO) 0.03 x10^3/uL (0-0.1); BASOPHILS % (AUTO) 1 % (0-1); EOSINOPHILS # (AUTO) 0.03 x10^3/uL (0-0.4); EOSINOPHILS % (AUTO) 1 % (1-7); LYMPHOCYTES # (AUTO) 0.88 x10^3/uL (1-3.4); LYMPHOCYTES % (AUTO) 18 % (22-44); MD NO; MEAN CORPUSCULAR HEMOGLOBIN 31.3 pg (27.0-34.8); MEAN CORPUSCULAR HGB CONC 33.2 g/dL (32.4-35.8); MEAN CORPUSCULAR VOLUME 94.1 fL (80-100); MEAN PLATELET VOLUME 9.3 fL (7.4-10.4); MONOCYTES % (AUTO) 10 % (2-9); NEUTROPHILS % (AUTO) 70 % (42-75); PLATELET COUNT 130 x10^3/uL (130-400); RED BLOOD COUNT 2.85 x10^6/uL (3.82-5.3); RED CELL DISTRIBUTION WIDTH 16.9 % (9.6-15.2)
[2017-12-24 19:31] LABS: ALBUMIN 3.5 g/dL (3.4-5.0); ANION GAP 7 mmol/L (5-15); CALCIUM 8.7 mg/dL (8.5-10.1); CHLORIDE 109 mmol/L (98-107); CREATININE 1.97 mg/dL (0.55-1.02)
[2017-12-24 19:35] LABS: TROPONIN I < 0.015 ng/mL (0.000-0.045)
[2017-12-24 19:39] LABS: CULTURE INDICATED? YES; MICROSCOPIC INDICATED
[2017-12-24 20:23] VITALS: BP 110/45
== END 2017-12-24 20:55 | disposition home or self-care (01) ==
LOC: ED 20:49
DX: E11.9 Type 2 diabetes mellitus without complications (principal); I25.2 Old myocardial infarction; I50.9 Heart failure, unspecified; I11.9 Hypertensive heart disease without heart failure; I95.9 Hypotension, unspecified; R53.1 Weakness
CPT/HCPCS: 36415; 71045; 80048; 81001; 82040; 83605; 83880; 84484; 85025; 85379; 87086; 93005; 99285

== ENCOUNTER 2018-01-17 10:22 | Day surgery (SDC) | payer OTHER ==
[~2018-01-17] VITALS: Ht 170.2 cm; Wt 83.5 kg
[~2018-01-17 10:22] MED LIST changes: +PANT20TA3 PO
[2018-01-17 10:36] VITALS: BP 129/58
[2018-01-17] MEDS ORDERED: LACTATED RINGERS 1,000 ML IV SCH (10:36)
[2018-01-17] MEDS ORDERED: LABETALOL 5MG/ML, 20ML IV PRN (11:30)
[2018-01-17] MEDS ORDERED: ONDANSETRON 2MG/ML, 2ML IV PRN (11:30)
[2018-01-17] MEDS ORDERED: hydrALAzine 20 MG/ML, 1ML IV PRN (11:30)
[2018-01-17] MEDS ORDERED: PROPOFOL 10 MG/ML, 20ML ONE (11:34)
[2018-01-17 13:08] LABS: MEAN CORPUSCULAR HEMOGLOBIN 30.2 pg (27.0-34.8); MEAN CORPUSCULAR HGB CONC 32.8 g/dL (32.4-35.8); MEAN PLATELET VOLUME 10.5 fL (7.4-10.4); PLATELET COUNT 78 x10^3/uL (130-400); RED BLOOD COUNT 3.37 x10^6/uL (3.82-5.3); RED CELL DISTRIBUTION WIDTH 17.1 % (9.6-15.2)
[2018-01-17 14:15] LABS: BASOPHILS % (AUTO) 1 % (0-1); EOSINOPHILS # (AUTO) 0.02 x10^3/uL (0-0.4); EOSINOPHILS % (AUTO) 0 % (1-7); LYMPHOCYTES # (AUTO) 0.59 x10^3/uL (1-3.4); LYMPHOCYTES % (AUTO) 14 % (22-44); MONOCYTES % (AUTO) 9 % (2-9); NEUTROPHILS # (AUTO) 3.26 x10^3/uL (1.8-6.8); NEUTROPHILS % (AUTO) 76 % (42-75)
[2018-01-17 14:16] LABS: MD MORPH REVIEW ONLY
[2018-01-17 14:18] LABS: ANISOCYTOSIS 1+
[2018-01-17 14:19] LABS: <PLATELET ESTIMATE> DECREASED; LARGE PLATELETS 1+
== END 2018-01-17 13:30 | disposition home or self-care (01) ==
LOC: OUT 10:22
PROVIDERS: ATTEND Internal Medicine Geriatric Medicine
DX: K55.20 Angiodysplasia of colon without hemorrhage (principal); E11.22 Type 2 diabetes mellitus with diabetic chronic kidney disease; I12.9 Hypertensive chronic kidney disease with stage 1 through stage 4 chronic kidney disease, or unspecified chronic kidney disease; N18.9 Chronic kidney disease, unspecified; E78.5 Hyperlipidemia, unspecified; I48.91 Unspecified atrial fibrillation; I25.10 Atherosclerotic heart disease of native coronary artery without angina pectoris; Z88.5 Allergy status to narcotic agent; Z88.8 Allergy status to other drugs, medicaments and biological substances
CPT/HCPCS: 44369; 82962; 85025; J2704; J7120

== ENCOUNTER 2018-02-24 22:28 | Inpatient (IN) | payer OTHER ==
[~2018-02-24] VITALS: Ht 170.2 cm; Wt 91.8 kg
[~2018-02-24 22:28] MED LIST changes: -ASPI-621 PO; +ASPI81TA45 PO; +SIMV80TA18 PO; -SIMV80TA7 PO
[2018-02-24] MEDS ORDERED: ACETAMINOPHEN 325 MG TABLET PO ONE (23:00)
--- NOTE | 2018-02-24 23:00 | NUR ---
LATE ENTRY FOR 2299- PT BIB [facility] FOR GENERALIZED MALAISE, FEVERS AND CHILLS SINCE TODAY. PT ALSO STATED SHE HAS HAD BLOOD IN URINE TODAY. PT WAS SEEN BY UROLOGIST TODAY. PT A&OX4 AND DROWSY, PT VOMITTED X 1 WITH [facility] AND ZOFRAN 4MG IV GIVEN. PT ALSO STATES SHE HAS MULTIPLE UTI AT WHICH SHE JUST FINISHED ANTIBIOTICS FOR 1 WEEK. BLOOD GLUCOSE 146 PER [facility]. PT WITH HX: DM, RF, ND WITH STENTS X 3, GERD, HIGH CHOLESTEROL, UTIS, PEDAL EDEMA AND RESTLESS LEG SYNDROME. PT PLACED IN ROOM AND PLACED ON BP, CARDIAC AND CONT. PULSE OXIMETER. ASSESSMENT COMPLETED AND MD HAS SEEN PT.
[2018-02-24] MEDS ORDERED: ACETAMINOPHEN 325 MG TABLET ONE (23:15)
--- NOTE | 2018-02-24 23:20 | NUR ---
BLOOD CULTURES DRAWN X 2.
[2018-02-24 23:27] LABS: RAPID INFLUENZA A Negative (Negative); RAPID INFLUENZA B Negative (Negative)
--- NOTE | 2018-02-24 23:32 | NUR ---
PT PLACED ON BED HEADLEY TO URINATE.
[2018-02-24 23:35] LABS: BASOPHILS % (AUTO) 0 % (0-1); EOSINOPHILS # (AUTO) 0.07 x10^3/uL (0-0.4); EOSINOPHILS % (AUTO) 1 % (1-7); LYMPHOCYTES # (AUTO) 0.09 x10^3/uL (1-3.4); LYMPHOCYTES % (AUTO) 1 % (22-44); MD NO; MEAN CORPUSCULAR HEMOGLOBIN 29.5 pg (27.0-34.8); MEAN CORPUSCULAR HGB CONC 32.6 g/dL (32.4-35.8); MEAN CORPUSCULAR VOLUME 90.8 fL (80-100); MEAN PLATELET VOLUME 9.6 fL (7.4-10.4); MONOCYTES # (AUTO) 0.31 x10^3/uL (0.2-0.8); MONOCYTES % (AUTO) 5 % (2-9); NEUTROPHILS # (AUTO) 6.42 x10^3/uL (1.8-6.8); NEUTROPHILS % (AUTO) 93 % (42-75); PLATELET COUNT 116 x10^3/uL (130-400); RED BLOOD COUNT 2.84 x10^6/uL (3.82-5.3); RED CELL DISTRIBUTION WIDTH 17.2 % (9.6-15.2)
[2018-02-24 23:47] LABS: ALANINE AMINOTRANSFERASE 35 U/L (12-78); ALBUMIN 3.3 g/dL (3.4-5.0); ANION GAP 7 mmol/L (5-15); CALCIUM 8.3 mg/dL (8.5-10.1); CHLORIDE 110 mmol/L (98-107); CREATININE 1.95 mg/dL (0.55-1.02)
--- NOTE | 2018-02-24 23:47 | NUR ---
BLOOD PRESSURE MANUAL 90/40. MD AWARE.
--- NOTE | 2018-02-24 23:47 | NUR ---
JOSH TEIXEIRA [phone]
[2018-02-24 23:51] LABS: ALKALINE PHOSPHATASE 138 U/L (45-117); BILIRUBIN,TOTAL 0.3 mg/dL (0.2-1.0); TOTAL PROTEIN 6.8 g/dL (6.4-8.2); TROPONIN I 0.051 ng/mL (0.000-0.045)
[2018-02-25] VITALS (11 sets, daily range): BP systolic 91–102; BP diastolic 54–60
[2018-02-25] MEDS ORDERED: SODIUM CHLORIDE 0.9% 1,000ML IVBOLUS ONE
[2018-02-25] MEDS ORDERED: TRAZ-137 PO
[2018-02-25 00:23] LABS: MICROSCOPIC AUTO
--- NOTE | 2018-02-25 00:25 | NUR ---
TEMP 101. AWARE. PT GIVEN 1 SHEET AND BLANKET TAKEN AWAY
[2018-02-25 00:27] LABS: CULTURE INDICATED? YES
[2018-02-25] MEDS ORDERED: PIPERACILLIN/TAZO/PMX 3.375GM 50 ML ONE (00:27)
[2018-02-25] MEDS ORDERED: PHARMACOKINETIC CONSULTATION MC ONE (00:30)
[2018-02-25] MEDS ORDERED: VANCOMYCIN PER PHARMACY IV ONE (00:30)
[2018-02-25] MEDS ORDERED: PIPERACILLIN/TAZO/PMX 3.375GM 50 ML IVPB ONE (00:30)
[2018-02-25] MEDS ORDERED: VANCOMYCIN 1,600 MG in SODIUM CHLORIDE 0.9% 250 ML IV ONE (00:30)
--- NOTE | 2018-02-25 00:33 | NUR ---
ANTIBIOTICS HUNG PER MD ORDER.
[2018-02-25] MEDS ORDERED: SODIUM CHLORIDE 0.9% 1,000 ML IV ONE (00:39)
--- NOTE | 2018-02-25 00:52 | NUR ---
REPORT GIVEN TO SEYMOUR BAEZA.
[2018-02-25] MEDS ORDERED: ONDANSETRON 2MG/ML, 2ML IVPush PRN ×2 (01:00→01:30)
--- NOTE | 2018-02-25 01:08 | NUR ---
REPORT TO PRODUCTION PLANNING SUPERVISOR. PT READY FOR TRANSPORT
--- NOTE | 2018-02-25 01:09 | NUR ---
ABX AND FLUIDS INFUSING TO FLOOR
[2018-02-25] MEDS ORDERED: POLYETHYLENE GLYCOL 17 GM PACKET PO PRN (01:30)
[2018-02-25] MEDS ORDERED: BISACODYL 10 MG SUPP PR PRN (01:30)
[2018-02-25] MEDS ORDERED: hydrALAzine 20 MG/ML, 1ML IVPush PRN (01:30)
[2018-02-25] MEDS ORDERED: SODIUM CHLORIDE 0.9% 1,000 ML IV SCH (01:30)
[2018-02-25] MEDS ORDERED: LABETALOL 5MG/ML, 20ML IVPush PRN (01:30)
[2018-02-25] MEDS ORDERED: PROMETHAZINE 25 MG/ML, 1ML IM PRN (01:30)
[2018-02-25] MEDS ORDERED: DOCUSATE 100 MG CAPSULE PO PRN (01:30)
[2018-02-25] MEDS ORDERED: GABAPENTIN 300 MG CAPSULE PO PRN (01:30)
[2018-02-25] MEDS ORDERED: ACETAMINOPHEN 325 MG TABLET PO PRN (01:30)
[2018-02-25] MEDS ORDERED: ONDANSETRON ODT 4 MG PO PRN (01:30)
[2018-02-25 01:42] LABS: FREE T4 (FREE THYROXINE) 0.87 ng/dL (0.76-1.46); THYROID STIMULATING HORMONE 2.54 mIU/L (0.358-3.740)
[2018-02-25] MEDS ORDERED: LABETALOL 20 MG/4 ML IVPush PRN (02:00)
[2018-02-25 03:36] LABS: ALANINE AMINOTRANSFERASE 28 U/L (12-78); ALBUMIN 2.5 g/dL (3.4-5.0); ANION GAP 6 mmol/L (5-15); CALCIUM 7.4 mg/dL (8.5-10.1); CHLORIDE 112 mmol/L (98-107); CHOLESTEROL, TOTAL 104 mg/dL (140-239); CREATININE 1.88 mg/dL (0.55-1.02)
[2018-02-25 03:38] LABS: ALKALINE PHOSPHATASE 101 U/L (45-117); BILIRUBIN,TOTAL 0.4 mg/dL (0.2-1.0); HDL CHOL % 49 % (28-40); HDL CHOLESTEROL (DIRECT) 51 mg/dL (40-60); LDL CHOLESTEROL,CALCULATED 45 mg/dL (54-169); LDL/HDL RATIO 0.9 (0.5-3.0); TOTAL PROTEIN 5.2 g/dL (6.4-8.2); TRIGLYCERIDES 40 mg/dL (50-200); VLDL CHOLESTEROL 8 mg/dL (0-25)
[2018-02-25 03:57] LABS: MEAN CORPUSCULAR HEMOGLOBIN 29.3 pg (27.0-34.8); MEAN CORPUSCULAR HGB CONC 31.6 g/dL (32.4-35.8); MEAN CORPUSCULAR VOLUME 92.5 fL (80-100); RED BLOOD COUNT 2.28 x10^6/uL (3.82-5.3); RED CELL DISTRIBUTION WIDTH 17.5 % (9.6-15.2)
[2018-02-25 04:19] LABS: TROPONIN I 0.117 ng/mL (0.000-0.045)
[2018-02-25 04:29] LABS: MEAN PLATELET VOLUME 10.3 fL (7.4-10.4); PLATELET COUNT 96 x10^3/uL (130-400)
[2018-02-25 04:30] LABS: BASOPHILS % (AUTO) 0 % (0-1); EOSINOPHILS % (AUTO) 0 % (1-7); LYMPHOCYTES # (AUTO) 0.08 x10^3/uL (1-3.4); LYMPHOCYTES % (AUTO) 1 % (22-44); MD SCAN; MONOCYTES # (AUTO) 0.24 x10^3/uL (0.2-0.8); MONOCYTES % (AUTO) 4 % (2-9); NEUTROPHILS # (AUTO) 5.88 x10^3/uL (1.8-6.8); NEUTROPHILS % (AUTO) 95 % (42-75)
[2018-02-25] MEDS ORDERED: PIPERACILLIN/TAZO 2.25 GM in SODIUM CHLORIDE 0.9% 50 ML IV SCH (06:00)
[2018-02-25] MEDS: METOPROLOL SUCCINATE 25 MG TAB.ER.24H PO SCH ×2 (08:40→20:49)
[2018-02-25 10:08] LABS: TROPONIN I 0.058 ng/mL (0.000-0.045)
[2018-02-25] MEDS: PREGABALIN 150 MG CAPSULE PO SCH ×2 (10:29→21:03)
[2018-02-25] MEDS: PIOGLITAZONE 15 MG TABLET PO SCH (10:29)
[2018-02-25] MEDS: ROPINIROLE 0.5MG TABLET PO SCH ×2 (10:29→21:03)
[2018-02-25] MEDS: PANTOPRAZOLE 20MG TABLET PO SCH (10:29)
[2018-02-25] MEDS: FLUOXETINE HCL 20 MG CAPSULE PO SCH (10:30)
[2018-02-25] MEDS: PIPERACILLIN/TAZO/PMX 2.25GM 50 ML IV SCH ×2 (10:30→17:36)
[2018-02-25] MEDS: CLOPIDOGREL 75 MG TABLET PO SCH (10:30)
[2018-02-25 11:37] LABS: % IRON SATURATION 5 % (20-55); IRON LEVEL 21 mcg/dL (50-170); TOTAL IRON BINDING CAPACITY 409 mcg/dL (250-450)
[2018-02-25] MEDS: IRON SUCROSE COMPLEX 100MG/5ML IV SCH (12:10)
[2018-02-25] MEDS: ZOLPIDEM 5MG TABLET PO SCH (21:03)
[2018-02-25] MEDS: ESTRADIOL 1 MG TABLET PO SCH (21:03)
[2018-02-25] MEDS: TRAZODONE 100MG TABLET PO SCH (21:04)
[2018-02-25] MEDS: ATORVASTATIN 80 MG TABLET PO SCH (21:04)
[2018-02-26] MEDS: PIPERACILLIN/TAZO/PMX 2.25GM 50 ML IV SCH ×4 (00:15→17:58)
[2018-02-26 01:50] VITALS: BP 97/60
[2018-02-26 07:16] VITALS: BP 97/58
[2018-02-26] MEDS: PIOGLITAZONE 15 MG TABLET PO SCH (08:53)
[2018-02-26] MEDS: ROPINIROLE 0.5MG TABLET PO SCH ×2 (08:53→21:07)
[2018-02-26] MEDS: PANTOPRAZOLE 20MG TABLET PO SCH (08:53)
[2018-02-26] MEDS: IRON SUCROSE COMPLEX 100MG/5ML IV SCH (08:53)
[2018-02-26] MEDS: FLUOXETINE HCL 20 MG CAPSULE PO SCH (08:53)
[2018-02-26] MEDS: CLOPIDOGREL 75 MG TABLET PO SCH (08:53)
[2018-02-26] MEDS: PREGABALIN 150 MG CAPSULE PO SCH ×2 (08:53→21:07)
[2018-02-26] MEDS: METOPROLOL SUCCINATE 25 MG TAB.ER.24H PO SCH ×2 (08:54→21:09)
[2018-02-26 09:34] LABS: ANION GAP 8 mmol/L (5-15); CALCIUM 7.2 mg/dL (8.5-10.1); CHLORIDE 111 mmol/L (98-107)
[2018-02-26 09:56] LABS: BASOPHILS # (AUTO) 0.01 x10^3/uL (0-0.1); BASOPHILS % (AUTO) 0 % (0-1); EOSINOPHILS % (AUTO) 0 % (1-7); LYMPHOCYTES # (AUTO) 0.29 x10^3/uL (1-3.4); LYMPHOCYTES % (AUTO) 7 % (22-44); MD SCAN; MEAN CORPUSCULAR HEMOGLOBIN 29.4 pg (27.0-34.8); MEAN CORPUSCULAR HGB CONC 32.2 g/dL (32.4-35.8); MEAN CORPUSCULAR VOLUME 91.3 fL (80-100); MONOCYTES # (AUTO) 0.18 x10^3/uL (0.2-0.8); MONOCYTES % (AUTO) 4 % (2-9); NEUTROPHILS % (AUTO) 88 % (42-75); PLATELET COUNT 72 x10^3/uL (130-400); RED BLOOD COUNT 2.79 x10^6/uL (3.82-5.3); RED CELL DISTRIBUTION WIDTH 18.1 % (9.6-15.2)
[2018-02-26 12:27] VITALS: BP 101/59
[2018-02-26 20:33] VITALS: BP 106/56
[2018-02-26] MEDS: TRAZODONE 100MG TABLET PO SCH (21:06)
[2018-02-26] MEDS: ESTRADIOL 1 MG TABLET PO SCH (21:07)
[2018-02-26] MEDS: ATORVASTATIN 80 MG TABLET PO SCH (21:07)
[2018-02-26] MEDS: ZOLPIDEM 5MG TABLET PO SCH (21:07)
[2018-02-27] MEDS ORDERED: PIPERACILLIN/TAZO 2.25 GM in DEXTROSE 5% 50 ML IV SCH
[2018-02-27] MEDS: PIPERACILLIN/TAZO 2.25 GM in DEXTROSE 5% 50 ML IV SCH ×3 (00:06→11:41)
[2018-02-27 01:40] VITALS: BP 115/67
[2018-02-27 05:42] LABS: MEAN CORPUSCULAR HEMOGLOBIN 29.2 pg (27.0-34.8); MEAN CORPUSCULAR HGB CONC 32.4 g/dL (32.4-35.8); MEAN CORPUSCULAR VOLUME 90.2 fL (80-100); MEAN PLATELET VOLUME 10.5 fL (7.4-10.4); PLATELET COUNT 73 x10^3/uL (130-400); RED BLOOD COUNT 2.74 x10^6/uL (3.82-5.3); RED CELL DISTRIBUTION WIDTH 17.5 % (9.6-15.2)
[2018-02-27 05:43] LABS: ANION GAP 7 mmol/L (5-15); CALCIUM 7.7 mg/dL (8.5-10.1); CHLORIDE 111 mmol/L (98-107); CREATININE 1.59 mg/dL (0.55-1.02)
[2018-02-27 06:47] VITALS: BP 108/64
[2018-02-27 07:07] LABS: BASOPHILS # (AUTO) 0.02 x10^3/uL (0-0.1); BASOPHILS % (AUTO) 0 % (0-1); EOSINOPHILS # (AUTO) 0.03 x10^3/uL (0-0.4); EOSINOPHILS % (AUTO) 1 % (1-7); LYMPHOCYTES # (AUTO) 0.38 x10^3/uL (1-3.4); LYMPHOCYTES % (AUTO) 9 % (22-44); MD SCAN; MONOCYTES # (AUTO) 0.39 x10^3/uL (0.2-0.8); MONOCYTES % (AUTO) 9 % (2-9); NEUTROPHILS # (AUTO) 3.52 x10^3/uL (1.8-6.8); NEUTROPHILS % (AUTO) 81 % (42-75)
[2018-02-27] MEDS: CLOPIDOGREL 75 MG TABLET PO SCH (09:11)
[2018-02-27] MEDS: IRON SUCROSE COMPLEX 100MG/5ML IV SCH (09:11)
[2018-02-27] MEDS: PIOGLITAZONE 15 MG TABLET PO SCH (09:11)
[2018-02-27] MEDS: PANTOPRAZOLE 20MG TABLET PO SCH (09:11)
[2018-02-27] MEDS: FLUOXETINE HCL 20 MG CAPSULE PO SCH (09:11)
[2018-02-27] MEDS: ROPINIROLE 0.5MG TABLET PO SCH ×2 (09:12→20:13)
[2018-02-27] MEDS: PREGABALIN 150 MG CAPSULE PO SCH ×2 (09:12→20:13)
[2018-02-27] MEDS: METOPROLOL SUCCINATE 25 MG TAB.ER.24H PO SCH (09:12)
[2018-02-27 12:34] VITALS: BP 104/66
[2018-02-27 12:57] VITALS: BP 103/68
[2018-02-27] MEDS: CEFDINIR 300 MG CAPSULE PO SCH (15:56)
[2018-02-27] MEDS ORDERED: ATORVASTATIN 40 MG TABLET PO SCH (19:39)
[2018-02-27 20:13] VITALS: BP 117/64
[2018-02-27] MEDS: TRAZODONE 100MG TABLET PO SCH (20:13)
[2018-02-27] MEDS: ESTRADIOL 1 MG TABLET PO SCH (20:14)
[2018-02-28 00:53] VITALS: BP 129/72
[2018-02-28] MEDS: CEFDINIR 300 MG CAPSULE PO SCH ×2 (00:55→09:46)
[2018-02-28 06:16] LABS: MEAN CORPUSCULAR HEMOGLOBIN 29.5 pg (27.0-34.8); MEAN CORPUSCULAR HGB CONC 32.4 g/dL (32.4-35.8); MEAN PLATELET VOLUME 10.3 fL (7.4-10.4); PLATELET COUNT 85 x10^3/uL (130-400); RED BLOOD COUNT 2.87 x10^6/uL (3.82-5.3); RED CELL DISTRIBUTION WIDTH 17.6 % (9.6-15.2)
[2018-02-28 06:30] LABS: ALANINE AMINOTRANSFERASE 33 U/L (12-78); ALBUMIN 2.5 g/dL (3.4-5.0); ANION GAP 7 mmol/L (5-15); CHLORIDE 112 mmol/L (98-107); CREATININE 1.42 mg/dL (0.55-1.02)
[2018-02-28 06:33] LABS: ALKALINE PHOSPHATASE 183 U/L (45-117); BILIRUBIN,TOTAL 0.8 mg/dL (0.2-1.0); TOTAL PROTEIN 5.8 g/dL (6.4-8.2)
[2018-02-28 06:42] LABS: BASOPHILS # (AUTO) 0.03 x10^3/uL (0-0.1); BASOPHILS % (AUTO) 1 % (0-1); EOSINOPHILS # (AUTO) 0.13 x10^3/uL (0-0.4); EOSINOPHILS % (AUTO) 3 % (1-7); LYMPHOCYTES # (AUTO) 0.49 x10^3/uL (1-3.4); LYMPHOCYTES % (AUTO) 10 % (22-44); MD SCAN; MONOCYTES # (AUTO) 0.53 x10^3/uL (0.2-0.8); MONOCYTES % (AUTO) 11 % (2-9); NEUTROPHILS # (AUTO) 3.69 x10^3/uL (1.8-6.8); NEUTROPHILS % (AUTO) 76 % (42-75)
[2018-02-28 07:03] VITALS: BP 135/72
[2018-02-28] MEDS ORDERED: METOPROLOL TARTRATE 25 MG TABLET PO SCH (09:00)
[2018-02-28] MEDS: PREGABALIN 150 MG CAPSULE PO SCH (09:45)
[2018-02-28] MEDS: CLOPIDOGREL 75 MG TABLET PO SCH (09:46)
[2018-02-28] MEDS: IRON SUCROSE COMPLEX 100MG/5ML IV SCH (09:47)
[2018-02-28] MEDS: ROPINIROLE 0.5MG TABLET PO SCH (09:47)
[2018-02-28] MEDS: FLUOXETINE HCL 20 MG CAPSULE PO SCH (09:47)
[2018-02-28] MEDS: PANTOPRAZOLE 20MG TABLET PO SCH (09:47)
[2018-02-28 12:27] VITALS: BP 122/68
[2018-02-28] MEDS ORDERED: CEFD300C37 PO (12:50)
== END 2018-02-28 14:23 | disposition home health service (06) | DRG 682 ==
LOC: ED 23:44 → EDIP 02-25 01:07 → 5SO 02-25 01:19 → DCLOUNGE 02-28 14:12
PROVIDERS: ADMIT Internal Medicine; ATTEND Internal Medicine
PROC: 30233N1 Transfusion of Nonautologous Red Blood Cells into Peripheral Vein, Percutaneous Approach (ICD-10-PCS; principal; 2018-02-25)
PROC: 0T9B70Z Drainage of Bladder with Drainage Device, Via Natural or Artificial Opening (ICD-10-PCS; 2018-02-25)
DX: N17.9 Acute kidney failure, unspecified (principal); R65.11 Systemic inflammatory response syndrome (SIRS) of non-infectious origin with acute organ dysfunction; J96.01 Acute respiratory failure with hypoxia; D68.69 Other thrombophilia; E44.0 Moderate protein-calorie malnutrition; I13.0 Hypertensive heart and chronic kidney disease with heart failure and stage 1 through stage 4 chronic kidney disease, or unspecified chronic kidney disease; N30.90 Cystitis, unspecified without hematuria; I95.89 Other hypotension; B96.20 Unspecified Escherichia coli [E. coli] as the cause of diseases classified elsewhere; E78.5 Hyperlipidemia, unspecified; N18.3 Chronic kidney disease, stage 3 (moderate); I25.10 Atherosclerotic heart disease of native coronary artery without angina pectoris; I48.0 Paroxysmal atrial fibrillation; I50.9 Heart failure, unspecified; D69.6 Thrombocytopenia, unspecified; D63.1 Anemia in chronic kidney disease; E11.22 Type 2 diabetes mellitus with diabetic chronic kidney disease; E86.0 Dehydration; I48.2 Chronic atrial fibrillation; I99.8 Other disorder of circulatory system; I08.1 Rheumatic disorders of both mitral and tricuspid valves; Z95.5 Presence of coronary angioplasty implant and graft; Z90.710 Acquired absence of both cervix and uterus; Z87.440 Personal history of urinary (tract) infections; Z82.49 Family history of ischemic heart disease and other diseases of the circulatory system; Z87.891 Personal history of nicotine dependence; Z95.3 Presence of xenogenic heart valve; Z79.02 Long term (current) use of antithrombotics/antiplatelets; I25.2 Old myocardial infarction; Z79.890 Hormone replacement therapy; Z88.8 Allergy status to other drugs, medicaments and biological substances; Z88.1 Allergy status to other antibiotic agents; Z68.31 Body mass index [BMI] 31.0-31.9, adult
CPT/HCPCS: 36415; 36430; 71045; 80048; 80053; 80061; 81001; 83036; 83540; 83550; 83605; 83735; 84100; 84145; 84439; 84443; 84484; 85014; 85018; 85025; 86850; 86900; 86923; 87040; 87077; 87086; 87186; 87400; 93005; 99291; G0378; J1756; J2543; J3370; J7030; J7050; P9016

== ENCOUNTER 2018-03-09 10:15 | Day surgery (SDC) | payer MEDICARE, OTHER ==
[~2018-03-09] VITALS: Ht 170.2 cm; Wt 85.7 kg
[~2018-03-09 10:15] MED LIST changes: +CEFD300C37 PO; -SIMV80TA18 PO; +SIMV80TA7 PO; +TRAZ-137 PO
[2018-03-09] MEDS ORDERED: LACTATED RINGERS 1,000 ML IV SCH (11:05)
[2018-03-09 11:09] VITALS: BP 145/79
[2018-03-09] MEDS ORDERED: PROPOFOL 10 MG/ML, 20ML ONE (12:18)
[2018-03-09] MEDS ORDERED: EPHEDRINE 50 MG/ML, 1ML ONE (12:18)
[2018-03-09] MEDS ORDERED: FENTANYL PF 100 MCG/2ML ONE (12:18)
[2018-03-09] MEDS ORDERED: DEXAMETHASONE 4 MG/ML, 1ML ONE (12:18)
[2018-03-09] MEDS ORDERED: SUCCINYLCHOLINE 20 MG/ML, 10ML ONE (12:18)
[2018-03-09] MEDS ORDERED: ROCURONIUM 10 MG/ML,10ML ONE (12:18)
[2018-03-09] MEDS ORDERED: ALBUTEROL SULFATE 2.5 MG/3 ML NPPB PRN (12:30)
[2018-03-09] MEDS ORDERED: hydrALAzine 20 MG/ML, 1ML IV PRN (12:30)
[2018-03-09] MEDS ORDERED: HYDROmorphone 2 MG/ML, 1ML IVPush PRN (12:30)
[2018-03-09] MEDS ORDERED: MEPERIDINE/PF 25MG/0.5ML IVPush PRN (12:30)
[2018-03-09] MEDS ORDERED: EPHEDRINE 50 MG/ML, 1ML IVPush PRN (12:30)
[2018-03-09] MEDS ORDERED: FENTANYL PF 100 MCG/2ML IV PRN (12:30)
[2018-03-09] MEDS ORDERED: HALOPERIDOL 5 MG/ML IV PRN (12:30)
[2018-03-09] MEDS ORDERED: PROMETHAZINE 25 MG/ML, 1ML IV PRN (12:30)
[2018-03-09] MEDS ORDERED: DIAZEPAM 5 MG/ML, 2ML IVPush PRN (12:30)
[2018-03-09] MEDS ORDERED: MORPHINE SULFATE 4 MG/ML, 1ML IVPush PRN (12:30)
[2018-03-09] MEDS ORDERED: LABETALOL 5MG/ML, 20ML IV PRN (12:30)
[2018-03-09] MEDS ORDERED: ONDANSETRON 2MG/ML, 2ML IV PRN (12:30)
[2018-03-09] MEDS ORDERED: PROMETHAZINE 12.5 MG SUPP PR PRN (12:30)
[2018-03-09] MEDS ORDERED: MIDAZOLAM 1 MG/ML, 2ML IV PRN (12:30)
[2018-03-09] MEDS ORDERED: ONDANSETRON ODT 8 MG PO PRN (12:30)
[2018-03-09] MEDS ORDERED: OXYcodone 5 MG/5 ML ORAL.SOL UDC PO PRN (12:30)
[2018-03-09 13:08] LABS: BASOPHILS # (AUTO) 0.01 x10^3/uL (0-0.1); BASOPHILS % (AUTO) 0 % (0-1); EOSINOPHILS # (AUTO) 0.02 x10^3/uL (0-0.4); EOSINOPHILS % (AUTO) 0 % (1-7); LYMPHOCYTES # (AUTO) 0.48 x10^3/uL (1-3.4); LYMPHOCYTES % (AUTO) 11 % (22-44); MD NO; MEAN CORPUSCULAR HEMOGLOBIN 28.5 pg (27.0-34.8); MEAN CORPUSCULAR HGB CONC 31.4 g/dL (32.4-35.8); MEAN CORPUSCULAR VOLUME 90.7 fL (80-100); MEAN PLATELET VOLUME 9.9 fL (7.4-10.4); MONOCYTES # (AUTO) 0.41 x10^3/uL (0.2-0.8); MONOCYTES % (AUTO) 10 % (2-9); NEUTROPHILS # (AUTO) 3.35 x10^3/uL (1.8-6.8); NEUTROPHILS % (AUTO) 79 % (42-75); PLATELET COUNT 124 x10^3/uL (130-400); RED BLOOD COUNT 3.43 x10^6/uL (3.82-5.3); RED CELL DISTRIBUTION WIDTH 16.8 % (9.6-15.2)
[2018-03-09 13:19] LABS: ALANINE AMINOTRANSFERASE 26 U/L (12-78); ALBUMIN 3.1 g/dL (3.4-5.0); ANION GAP 8 mmol/L (5-15); CALCIUM 8.5 mg/dL (8.5-10.1); CHLORIDE 108 mmol/L (98-107); CREATININE 1.24 mg/dL (0.55-1.02)
[2018-03-09 13:22] LABS: ALKALINE PHOSPHATASE 175 U/L (45-117); BILIRUBIN,TOTAL 0.6 mg/dL (0.2-1.0); TOTAL PROTEIN 6.5 g/dL (6.4-8.2)
[2018-03-09 13:26] LABS: INTERNATIONAL NORMALIZED RATIO 1.12 (0.93-1.1); PROTHROMBIN TIME 11.8 Seconds (9.6-11.5)
== END 2018-03-09 16:40 | disposition home or self-care (01) ==
LOC: OUT 10:15
PROVIDERS: ATTEND Internal Medicine Geriatric Medicine
DX: K31.819 Angiodysplasia of stomach and duodenum without bleeding (principal); K55.20 Angiodysplasia of colon without hemorrhage; I25.10 Atherosclerotic heart disease of native coronary artery without angina pectoris; D64.9 Anemia, unspecified; E78.5 Hyperlipidemia, unspecified; I48.91 Unspecified atrial fibrillation; I12.9 Hypertensive chronic kidney disease with stage 1 through stage 4 chronic kidney disease, or unspecified chronic kidney disease; N18.3 Chronic kidney disease, stage 3 (moderate); Z88.1 Allergy status to other antibiotic agents; Z98.890 Other specified postprocedural states; Z88.8 Allergy status to other drugs, medicaments and biological substances
CPT/HCPCS: 36415; 44369; 44799; 80053; 85025; 85610; 85730; 93005; J0330; J1100; J2704; J3010

== ENCOUNTER 2018-08-09 12:17 | Outpatient (CLI) | payer MEDICARE ==
[~2018-08-09 12:17] MED LIST changes: -NITR0.4T SL; +NITR0.4T41 SL; +SIMV80TA18 PO; -SIMV80TA7 PO
== END 2018-08-09 23:59 | disposition home or self-care (01) ==
LOC: CFH 12:17
PROVIDERS: ATTEND Internal Medicine Cardiovascular Disease
DX: I08.1 Rheumatic disorders of both mitral and tricuspid valves (principal)
CPT/HCPCS: 93306

== ENCOUNTER → 2019-08-22 | Outpatient (CLI) | payer MEDICARE ==
[~2019-08-22] MED LIST changes: +ACID1TAB7 PO; +AZIT500T PO; +LOPE-114 PO; -LOPE2CAP94 PO; +MIRA50TA PO; +MORP-29 PO; -MORP15TA3 PO; -PIOG30TA4 PO; +PIOG30TA68 PO; +POTA10TA6 PO; -ROPI0.5T2 PO; +ROPI0.5T4 PO; -TRAZ-137 PO; +TRAZ-175 PO
== END | disposition home or self-care (01) ==
LOC: CVU 15:28
PROVIDERS: ATTEND Internal Medicine Cardiovascular Disease
DX: Z01.818 Encounter for other preprocedural examination (principal); I08.8 Other rheumatic multiple valve diseases; E78.5 Hyperlipidemia, unspecified; Z95.1 Presence of aortocoronary bypass graft; Z87.891 Personal history of nicotine dependence
CPT/HCPCS: 93306

== ENCOUNTER 2020-10-30 09:42 | Outpatient (CLI) | payer MEDICARE ==
[~2020-10-30 09:42] MED LIST changes: -LISI2.5T PO; +LISI2.5T12 PO; -OXYC-432 PO; +OXYC1TAB18 PO; -PANT20TA3 PO; +PANT20TA4 PO
== END 2020-10-30 23:59 | disposition home or self-care (01) ==
LOC: CFH 09:42
PROVIDERS: ATTEND Internal Medicine Cardiovascular Disease
DX: I08.8 Other rheumatic multiple valve diseases (principal); Z95.2 Presence of prosthetic heart valve
CPT/HCPCS: 93306

== ENCOUNTER 2020-11-24 10:31 | Emergency (ER) | payer MEDICARE ==
[~2020-11-24] VITALS: Ht 170.2 cm; Wt 88.5 kg
[2020-11-24 16:25] VITALS: BP 156/101
== END 2020-11-24 18:22 | disposition home or self-care (01) ==
LOC: ED 13:06 → INTOOBSV 13:07 → UNDOADMOB 13:07 → EDIP 13:07 → ED 13:37 → SUATTDRO 13:45 → ED 18:22 → UNDODISOB 18:22
PROVIDERS: ATTEND Internal Medicine
DX: I48.91 Unspecified atrial fibrillation (principal); I11.0 Hypertensive heart disease with heart failure; I50.9 Heart failure, unspecified; R00.2 Palpitations; E11.9 Type 2 diabetes mellitus without complications; I25.2 Old myocardial infarction
CPT/HCPCS: 36415; 71045; 80048; 82040; 83880; 84484; 85025; 93005; 96374; 99285; J1940